=== PATIENT | male | born 1995 | race Caucasian/White ===

== ENCOUNTER 2021-12-13 11:48 | Outpatient (REF) | payer OTHER, SELFPAY ==
[2021-12-13 14:09] LABS: Appearance Urine HAZY; Color Urine YELLOW; Glucose Urine UA NEG (NEG); Leukocyte Esterase Urine NEG (NEG); Nitrite Urine NEG (NEG); Specific Gravity - Urine >= 1.030 (1.005-1.025); UACC Culture Trigger NO; Urine Blood TRACE (NEG); Urine Ketones NEG (NEG); Urine Protein NEG (NEG-TRACE)
[2021-12-13 14:30] LABS: Alanine Aminotransferase 41 U/L (0-40); Albumin Level 4.6 g/dL (3.5-5.0); Alkaline Phosphatase 87 U/L (39-117); Anion Gap 16 (12-20); Aspartate Amino Transferase 22 U/L (5-37); Bilirubin Total 0.6 mg/dL (0.0-1.0); Blood Urea Nitrogen 10 mg/dL (9-16); Calcium 9.9 mg/dL (8.4-10.2); Carbon Dioxide 27 mmol/L (22-29); Chloride 101 mmol/L (96-108); Cholesterol 183 mg/dL; Estimated Glomerular Filt Rate > 60; Glucose Fasting 92 mg/dL (60-99); HDL Cholesterol 36 mg/dL; LDL Cholesterol Calculated 96 mg/dl; Potassium 4.6 mmol/L (3.3-5.1); Sodium 139 mmol/L (135-145); Total Protein 7.3 g/dL (6.5-8.0); Triglycerides 258 mg/dL
[2021-12-13 14:40] LABS: Calcium Oxalate Crystals Urine TRACE /LPF; Mucus Urine 3+ /LPF; RBC Urine 0-2 /HPF (0); Squamous Epithelial Cell Urine TRACE /LPF; WBC Urine 0-2 /HPF (0-4)
[2021-12-13 14:52] LABS: TSH reflex Free T4 1.78 uIU/mL (0.32-4.0)
== END 2021-12-13 11:49 | disposition home or self-care (01) ==
LOC: HO.HMGCLDS 11:48
PROVIDERS: Visit Provider Nurse Practitioner Family
DX: Z00.00 Encounter for general adult medical examination without abnormal findings (principal); R31.29 Other microscopic hematuria
CPT/HCPCS: 36415; 80053; 80061; 81001; 81003; 84443

== ENCOUNTER 2023-03-22 09:56 | Outpatient (REF) | payer OTHER, SELFPAY ==
[2023-03-22 11:27] LABS: MANUAL DIFF FLAG NO
[2023-03-22 11:58] LABS: Appearance Urine Clear; Color Urine Yellow; Glucose Urine UA Negative (Negative); Leukocyte Esterase Urine Negative (Negative); Nitrite Urine Negative (Negative); PH 5.5 (5.0-9.0); Urine Blood Negative (Negative); Urine Ketones Negative (Negative); Urine Protein Negative (Neg-Trace)
[2023-03-22 11:59] LABS: Basophils Absolute Auto 0.1 X10*3/uL (0.0-0.2); Basophils Percent Auto 0.6 % (0-2); Eosinophils Absolute Auto 0.1 X10*3/uL (0.0-0.4); Eosinophils Percent Auto 1.4 % (0-4); Hematocrit 43.7 % (42.0-52.0); Hemoglobin 14.2 g/dl (14.0-18.0); Imm Gran Abs Auto 0.05 X10*3/uL (0.00-0.03); Imm Gran Pct Auto 0.6 % (0.0-0.4); Lymphocytes Absolute Auto 2.2 X10*3/uL (1.2-4.9); Lymphocytes Percent Auto 27.1 % (20-40); Mean Corpuscular HGB Conc 32.5 g/dl (31.0-36.0); Mean Corpuscular Hemoglobin 25.5 pg (27.0-33.0); Mean Corpuscular Volume 78.5 fL (80.0-98.0); Monocytes Absolute Auto 0.5 X10*3/uL (0.1-1.2); Monocytes Percent Auto 5.9 % (2-11); Neutrophils Absolute Auto 5.1 x10*3/uL (2.0-8.3); Neutrophils Percent Auto 64.4 % (45-73); Platelet Count 304 X10*3/uL (160-400); Red Blood Count 5.57 X10*6/uL (4.60-5.80); Red Cell Distribution Width 13.7 % (11.0-16.0)
[2023-03-22 12:44] LABS: Alanine Aminotransferase 51 U/L (0-40); Albumin Level 4.5 g/dL (3.5-5.0); Alkaline Phosphatase 87 U/L (39-117); Anion Gap 13 (12-20); Aspartate Amino Transferase 27 U/L (5-37); Bilirubin Total 0.4 mg/dL (0.0-1.0); Blood Urea Nitrogen 11 mg/dL (9-16); Calcium 9.5 mg/dL (8.4-10.2); Carbon Dioxide 27 mmol/L (22-29); Chloride 104 mmol/L (96-108); Cholesterol 192 mg/dL; Estimated Glomerular Filt Rate > 60; Glucose Fasting 118 mg/dL (60-99); HDL Cholesterol 36 mg/dL; LDL Cholesterol Calculated 107 mg/dl; Potassium 4.8 mmol/L (3.3-5.1); Sodium 139 mmol/L (135-145); Total Protein 7.1 g/dL (6.5-8.0); Triglycerides 246 mg/dL
[2023-03-22 12:58] LABS: TSH reflex Free T4 1.19 uIU/mL (0.32-4.0)
== END 2023-03-22 09:57 | disposition home or self-care (01) ==
LOC: HO.HMGCLDS 09:56
PROVIDERS: PCP Nurse Practitioner Family; Visit Provider Nurse Practitioner Family
DX: E78.5 Hyperlipidemia, unspecified (principal)
CPT/HCPCS: 36415; 80053; 80061; 81003; 84443; 85025

== ENCOUNTER 2023-04-01 09:50 | Outpatient (REF) | payer OTHER, SELFPAY ==
--- NOTE | ~2023-04-01 | US_ITS ---
EXAMINATION: US ABDOMEN COMPLETE CLINICAL INFORMATION: Elevated liver enzymes. COMPARISON: None available. TECHNIQUE: Real-time imaging of the abdominal viscera. Technically difficult study secondary to bowel gas and body habitus. FINDINGS: PANCREAS: The visualized portions of the pancreas are unremarkable but a large portion of the gland is obscured by bowel gas. ABDOMINAL AORTA: Distal aorta appears within normal limits in size. The proximal and mid abdominal aorta are not visualized. INFERIOR VENA CAVA: Obscured by bowel gas. LIVER: The liver is enlarged measuring about 21 cm in greatest length with increased echogenicity consistent with hepatic steatosis. The liver contour is normal. No focal hepatic lesion. There is no intrahepatic biliary duct dilatation seen. GALLBLADDER: Normal. The gallbladder is physiologically distended without evidence of stones, sludge, polyps, wall thickening or pericholecystic fluid. COMMON BILE DUCT: Could not be seen secondary to overlying bowel gas. RIGHT KIDNEY: No hydronephrosis. No renal calculi or focal parenchymal lesions. The kidney measures 12.9 cm in maximum dimension. LEFT KIDNEY: Normal. No hydronephrosis. No renal calculi or focal parenchymal lesions. The kidney measures 12.4 cm in maximum dimension. SPLEEN: The spleen is enlarged measuring 14.6 cm in maximum dimension. FREE FLUID: None. US/US abdomen complete IMPRESSION: 1. Enlarged fatty liver. 2. Splenomegaly.
[2023-04-03 07:57] LABS: HBS Num1 0.33 mIU/mL (0-7.99); HBc Num1 0.07 S/CO (0.00-0.79); HBsAGNum1 0.32 S/CO (0.00-0.99); Hepatitis A Antibody IgM 0.14 Index (0-0.79); Hepatitis B Core Antibody Nonreactive (Nonreactive); Hepatitis B Surface Antigen Negative (Negative); ~HepC Num1 0.08 S/CO (0.00-0.79); ~Hepatitis A Antibody IgM Nonreactive (Nonreactive); ~Hepatitis B Surface Antibody NONREACTIVE (Nonreactive); ~Hepatitis C Antibody Nonreactive (Nonreactive)
== END 2023-04-01 09:51 | disposition home or self-care (01) ==
LOC: HO.HMGCX 09:50
PROVIDERS: PCP Nurse Practitioner Family; Visit Provider Nurse Practitioner Family
DX: R74.8 Abnormal levels of other serum enzymes (principal)
CPT/HCPCS: 36415; 76700; 86704; 86706; 86709; 86803; 87340

== ENCOUNTER 2023-08-13 13:41 | Outpatient (AMB) | payer OTHER, SELFPAY ==
--- NOTE | 2023-08-13 13:53 | MHC.PC.OV ---
Vital Signs 08/13/23 13:58 Height 5 ft 10 in Weight 337 lb BMI 48.3 BP 126/82 Blood Pressure Location Rt brachial Position Sitting Pulse 98 Pulse Source Pulse Oximeter Pulse Oximetry (%) 98 Oxygen Delivery Method Room Air Intake Visit Reasons: PE~ R/S from 06/18 Allergies Nsaids Allergy (Unknown, Uncoded 08/13/23 13:58) on sertraline Medication List - Last Reconciled 08/13/23 by FADI Cadet atorvastatin 10 mg PO DAILY 90 days buspirone 5 mg PO BEDTIME buspirone 10 mg PO TID cholecalciferol (vitamin D3) 50 mcg PO DAILY 90 days fenofibrate micronized 67 mg PO DAILY hydroxyzine HCl 10 mg PO BID ketoconazole 2% 1 appl topical DAILY lisinopril 10 mg PO DAILY sertraline 100 mg PO DAILY sertraline 50 mg PO DAILY trazodone 50 mg PO BEDTIME Tobacco use date assessed: 08/13/23 Dental Screening Dental Screen Date: 08/13/23 Did you have a dental visit in the last 12 months?: No Did you have a dental problem in the last 6 months where you did not have access to dental care?: No Was dental information given to patient?: No HPI PE~ R/S from 06/18 HPI Details Pt is here for a PE. Will order labs. Pt reports tinea to his pelvic region. Will send ketoconazole cream. COUNT INCLUDES THE [facility] Medical History (Updated 08/13/23 @ 14:22 by FADI Cadet) Fatty liver Splenomegaly Family History Father Substance use disorder Mental health disorder Paternal Grandmother Substance use disorder Mother Mental health disorder Social History Housing: House Patient Tobacco Use Status: Never used Tobacco e-Cigarette/Vaping Use: Never Used Second Hand Smoke Exposure: No Cognitive needs: No Hearing needs: No Vision needs: Yes Questionnaire PHQ-9 Over the last 2 weeks, how often have you been bothered by any of the following problems? 1. Little interest or pleasure in doing things: not at all 2. Feeling down, depressed, or hopeless: not at all 3. Trouble falling or staying asleep, or sleeping too much: not at all 4. Feeling tired or having little energy: not at all 5. Poor appetite or overeating: not at all 6. Feeling bad about yourself - or that you are a failure or have let yourself or your family down: not at all 7. Trouble concentrating on things, such as reading the newspaper or watching television: not at all 8. Moving or speaking so slowly that other people could have noticed. Or the opposite - being so fidgety or restless that you have been moving around a lot more than usual: not at all 9. Thoughts that you would be better off or of hurting yourself in some way: not at all Total score: 0 Depression Screening Interpretation: Negative Depression Screening Done: Yes 31414 - PHQ-9 Billing: Yes Source: Developed by Drs. Boubacar Victor, Huong Deleon, Laz Espinal and colleagues, with an educational karen from [employer]. Thrive Questionnaire Date Thrive assessed: 06/14/21 AUDIT C Alcohol Use Questionnaire (AUDIT-C) 1. How often do you have a drink containing alcohol?: Never 3. How often do you have six or more drinks on one occasion?: Never Total Score: 0 Score Reviewed/Action Taken: No SEFERINO-7 AMB Questionnaire SEFERINO-7 Date SEFERINO - 7 assessed: 08/13/23 Feeling nervous, anxious, or on edge: 0 = Not at all Not being able to stop or control worryin = Not at all Worrying too much about different things: 0 = Not at all Trouble relaxin = Not at all Being so restless that it is hard to sit still: 0 = Not at all Becoming easily annoyed or irritable: 0 = Not at all Feeling afraid as if something awful might happen: 0 = Not at all Total SEFERINO-7 score (0-4 normal; 5-9 mild; 10-14 moderate; 15-21 severe): 0 Source: Developed by Drs. Boubacar Victor, Huong Deleon, Laz Espinal and colleagues, with an educational karen from [employer]. SEFERINO-7 Assessment Billing SEFERINO-7 Assessment Tool: SEFERINO-7 Assessment 66867 Review of Systems Const Denies chills and Denies fever(s) Eyes Denies blurry vision ENT Denies vertigo, Denies dizziness and Denies sore throat Card Denies chest pain at rest, Denies chest pain with activity, Denies diaphoresis, Denies dyspnea and Denies dyspnea on exertion Resp Denies cough, Denies dyspnea, Denies dyspnea on exertion and Denies wheezing GI Denies abdominal pain, Denies melena, Denies hematochezia, Denies constipation, Denies diarrhea and Denies loose stools Denies hematuria Musc Denies numbness and Denies tingling Skin/Breast Denies lesions Neuro Denies vertigo, Denies dizziness, Denies numbness and Denies tingling Psych Denies anxiety, Denies depression, Denies homicidal ideation, Denies suicidal ideation and Denies other (substance abuse) Aller/Immun Denies wheezing Physical exam (Primary Care) Vital Signs: Last Vital Signs Pulse 98 08/13/23 13:58 BP 126/82 08/13/23 13:58 Pulse Ox 98 08/13/23 13:58 Oxygen Delivery Method Room Air 08/13/23 13:58 BMI result Body Mass Index 48.3 Tobacco/Smoking Status: Tobacco use Status Tobacco use date assessed 08/13/23 08/13/23 14:03 Patient Tobacco Use Status Never used Tobacco 08/13/23 13:54 e-Cigarette/Vaping Use Never Used 08/13/23 14:03 Depression Screening Interpretation: Negative Thrive Assessment: Date of Thrive Assessment Date Thrive assessed 06/14/21 08/13/23 13:54 Const General: cooperative Nutritional Appearance: obese morbidly obese Orientation/consciousness: patient oriented x3 HENMT Head: Yes normal to inspection, Yes normocephalic and Yes atraumatic Ears: TM's normal bilaterally Eyes General: appearance normal, both eyes and all related structures Alignment and Position: alignment normal and position normal Neck Neck: Yes normal visual inspection and Yes no lymphadenopathy Thyroid: Thyroid normal Resp Effort & Inspection: normal respiratory effort Auscultation: clear to auscultation bilaterally Cardio Rate: regular rate Rhythm: regular rhythm Heart sounds: S1 normal heart sound present, S2 normal heart sound present and no murmurs GI Palpation (GI): Soft to palpation and nontender Auscultation: normal bowel sounds Male General Exam: Yes normal external exam Penis: normal penis Scrotum: scrotum normal, testes descended bilaterally and no inguinal hernias Testes: no testicular mass Skin Other: macular areas of erythema to pelvic region (tinea) Rashes: no rashes Neuro General: patient oriented x3, moves all extremities, no focal motor deficits and deep tendon reflexes 2+ bilaterally Romberg Test: Negative Psych Appearance: grossly normal Mental Status: mental status grossly normal Speech and movement: Normal speech and movement present Affect: normal affect Attitude: cooperative Thought process: Normal thought process present Thought content: Normal thought content present Insight: Good insight present (Psych) Judgement: Good judgement present (Psych) Assessment and Plan Assessment & Plan (1) Physical exam: Code(s): Z00.00 - Encounter for general adult medical examination without abnormal findings Plan: Labs ordered (2) Morbid obesity: Code(s): E66.01 - Morbid (severe) obesity due to excess calories Plan: Labs ordered (3) Tinea: Code(s): B35.9 - Dermatophytosis, unspecified Plan: Ketoconazole cream sent Plan The patient agreed to the use of a medical education coordinator for this encounter. Scribed for MYLES Uribe-BC by Susan Grace medical education coordinator, on 08/13/2023 at 14:15 EST Medications: New ketoconazole 2% 1 appl topical DAILY 60 grams 0RF Coding Level of Care Code Est Pt Prev Care 18-39y(03486) Diagnoses Physical exam Z00.00 Morbid obesity E66.01 Tinea B35.9 Additional Codes SEFERINO-7 Assessment Billing - SEFERINO-7 Assessment Tool: SEFERINO-7 Assessment [id number] ([id number])
[2023-08-13 13:58] VITALS: BP 126/82; PULSE 98; O2SAT 98; BMI 48.3
== END 2023-08-13 14:23 | disposition home or self-care (01) ==
PROVIDERS: Visit Provider Nurse Practitioner Family
DX: Z00.00 Encounter for general adult medical examination without abnormal findings (principal); E66.01 Morbid (severe) obesity due to excess calories; B35.9 Dermatophytosis, unspecified; Z68.42 Body mass index [BMI] 45.0-49.9, adult
CPT/HCPCS: 99395

== ENCOUNTER 2024-07-09 10:01 | Emergency (ER) | payer OTHER, SELFPAY ==
--- NOTE | ~2024-07-09 | CT_ITS ---
EXAMINATION: CT ABDOMEN AND PELVIS WITH CONTRAST CLINICAL INFORMATION: Left lower quadrant pain. Diarrhea. Fever. COMPARISON: None available. TECHNIQUE: Multidetector volumetric images were obtained from the superior aspect of the liver through the pubic symphysis following administration 85 mL of Omnipaque 350 intravenous contrast. Sagittal and coronal reformatted images were obtained on the technologist's workstation. Oral contrast: No This CT examination was performed using dose optimization techniques as appropriate, variously including the following: *Automated exposure control *Adjustment of mA and/or kV according to patient size (this includes techniques or standardized protocols for targeted exams where dose is matched to indication/reason for exam; i.e. extremities or head) *Use of iterative reconstruction technique DLP: 1769 mGy-cm FINDINGS: LUNG BASES: The visualized lung bases are unremarkable. LIVER, GALLBLADDER, AND BILIARY TREE: Mild hepatomegaly. Right lobe of liver measures 21 cm superior-inferior. Diffuse low-attenuation of liver parenchyma due to fatty change. No focal liver lesion or intrahepatic bile duct dilatation. The gallbladder is unremarkable with no evidence of radiopaque gallstones, gallbladder wall thickening, or obvious pericholecystic inflammatory changes. PANCREAS: Unremarkable. SPLEEN: Spleen is enlarged. Spleen measures 17 cm in length. No focal splenic lesion. ADRENAL GLANDS: Unremarkable. KIDNEYS AND URETERS: The kidneys are normal in size, shape, and attenuation. No hydronephrosis, hydroureter, or calculi seen. No perinephric stranding. BLADDER: Unremarkable. GASTROINTESTINAL TRACT: There are innumerable diverticula throughout the colon. There is no diverticulitis. There is no bowel wall thickening /edema. There is no bowel obstruction. There is a moderate volume of stool in the colon. The appendix is normal . The small bowel loops are unremarkable. The stomach is normal. There is no hiatal hernia. ABDOMINAL WALL: No significant hernia is appreciated. LYMPH NODES: Normal. VASCULAR: Unremarkable. PELVIC VISCERA: Unremarkable. OSSEOUS STRUCTURES: Unremarkable. CT/CT abdomen pelvis w IV con IMPRESSION: No significant abnormality. Fleischner guidelines were followed. Electronically signed by: Paul Phoenix MD 07/09/2024 03:35 PM EDT
[2024-07-09 10:19] VITALS: BP 134/90; PULSE 109; RESP 18; TEMP 38.9; O2SAT 96; BMI 44.6
[2024-07-09] MEDS: Acetaminophen 325 MG TABLET 975 MG PO (10:27)
[2024-07-09 10:44] LABS: MANUAL DIFF FLAG NO
[2024-07-09 10:45] LABS: Basophils Percent Auto 0.4 % (0-2); Eosinophils Percent Auto 0.4 % (0-4); Hematocrit 40.6 % (42.0-52.0); Hemoglobin 13.9 g/dl (14.0-18.0); Imm Gran Abs Auto 0.05 X10*3/uL (0.00-0.03); Lymphocytes Absolute Auto 0.9 X10*3/uL (1.2-4.9); Mean Corpuscular HGB Conc 34.2 g/dl (31.0-36.0); Mean Corpuscular Hemoglobin 25.8 pg (27.0-33.0); Mean Corpuscular Volume 75.5 fL (80.0-98.0); Mean Platelet Volume 9.5 fL (9.4-12.4); Monocytes Absolute Auto 0.6 X10*3/uL (0.1-1.2); Monocytes Percent Auto 13.4 % (2-11); Neutrophils Absolute Auto 3.2 x10*3/uL (2.0-8.3); Neutrophils Percent Auto 66.8 % (45-73); Platelet Count 184 X10*3/uL (160-400); Red Blood Count 5.38 X10*6/uL (4.60-5.80); Red Cell Distribution Width 13.1 % (11.0-16.0); White Blood Count 4.8 X10*3/uL (4.8-10.8)
[2024-07-09 10:58] LABS: Alanine Aminotransferase 81 U/L (0-40); Albumin Level 4.6 g/dL (3.5-5.0); Alkaline Phosphatase 96 U/L (39-117); Anion Gap 13 (12-20); Aspartate Amino Transferase 86 U/L (5-37); Bilirubin Total 0.8 mg/dL (0.0-1.0); Blood Urea Nitrogen 9 mg/dL (9-16); Calcium 9.8 mg/dL (8.4-10.2); Carbon Dioxide 27 mmol/L (22-29); Chloride 99 mmol/L (96-108); Creatinine Clr Calc Pharmacy 180.2; Estimated Glomerular Filt Rate > 60; Glucose Random 240 mg/dL (60-115); Sodium 135 mmol/L (135-145)
[2024-07-09 11:28] LABS: Influenza A PCR NEGATIVE (Negative); Influenza B PCR NEGATIVE (Negative); Resp Syncy Virus RNA Qual PCR NEGATIVE (Negative); SARS COV2 PCR INHOUSE NEGATIVE (Negative)
[2024-07-09 11:51] VITALS: BP 148/100; PULSE 103; RESP 18; TEMP 38; O2SAT 98
--- NOTE | 2024-07-09 11:51 | ED.ABDPAIN ---
HPI - Abdominal Pain General Chief Complaint: Abdominal Pain Stated Complaint: abd pain-vomiting Time Seen by Provider: 07/09/24 12:06 Source: patient Mode of arrival: ambulatory Limitations: no limitations History of Present Illness ED Provider: Alma Delia Hugo PA-C HPI narrative: 28 yo male with history of morbid obesity, HTN, anxiety, pre-DM who presents to the ER for evaluation of N/V/D for the last 3 days along with extreme fatigue. no known sick contacts. he states he has had decreased PO intake and vomiting whenever he tries to eat or drink anything. he denies any blood in his vomit or stool. no fevers, or known sick contacts. no URI symptoms. No significant abdominal pain but just discomfort. no recent travel. MD elicited complaint: other (N/V/D) Pertinent past history: none Onset (ago): day(s) (3) Pain Consistency: constant Severity: moderate Quality: dull Migration to: no migration Exacerbating factors: eating Relieving factors: nothing Associated symptoms: nausea, vomiting, diarrhea and chills Related Data Home Medications ?Medication ?Instructions ?Recorded ?Confirmed buspirone 10 mg tablet 10 mg PO TID 06/14/21 08/13/23 buspirone 5 mg tablet 5 mg PO BEDTIME 06/14/21 08/13/23 sertraline 100 mg tablet 100 mg PO DAILY 06/14/21 08/13/23 sertraline 50 mg tablet 50 mg PO DAILY 06/14/21 08/13/23 trazodone 50 mg tablet 50 mg PO BEDTIME 06/14/21 08/13/23 hydroxyzine HCl 10 mg tablet 10 mg PO BID 08/13/23 08/13/23 Previous Rx's ?Medication ?Instructions ?Recorded cholecalciferol (vitamin D3) 50 50 mcg PO DAILY 90 days #90 tabs 03/13/21 mcg (2,000 unit) tablet ketoconazole 2 % topical cream 1 appl topical DAILY #60 grams 08/13/23 lisinopril 10 mg tablet 10 mg PO DAILY #90 tabs 04/03/24 fenofibrate micronized 67 mg 67 mg PO DAILY #90 caps 06/17/24 capsule atorvastatin 10 mg tablet 10 mg PO DAILY 90 days #90 tabs 07/01/24 ondansetron 4 mg disintegrating 4 mg PO Q8H PRN nausea and 07/09/24 tablet vomiting #14 tabs vancomycin 125 mg capsule 125 mg PO QID 10 days #40 caps 07/09/24 (Vancocin) Allergies Allergy/AdvReac Type Severity Reaction Status Date / Time Nsaids Allergy Unknown on Uncoded 07/09/24 10:22 sertraline Review of Systems Review of Systems Yes all other systems are reviewed and are negative [facility] Past Medical History Medical History (Updated 07/09/24 @ 15:04 by MITESH Pugh) Fatty liver Splenomegaly Family History Family History Father Substance use disorder Mental health disorder Paternal Grandmother Substance use disorder Mother Mental health disorder Social History Social History Housing: House Patient Tobacco Use Status: Never used Tobacco e-Cigarette/Vaping Use: Never Used Second Hand Smoke Exposure: No Advance Directives: No Advance Directives Information Provided: No Do you have a plan to hurt others: No Plan Cognitive needs: No Hearing needs: No Vision needs: Yes Physical Exam ED Vital Signs: Vital Signs - 24 hr 07/09/24 10:19 07/09/24 11:51 07/09/24 14:00 Temperature 102.0 F H 100.4 F 99.4 F Pulse Rate 109 H 103 H 82 Respiratory Rate 18 18 14 Blood Pressure 134/90 H 148/100 H 132/89 Pulse Oximetry 96 98 97 Oxygen Delivery Method Room Air Room Air Room Air 07/09/24 15:50 07/09/24 16:24 Temperature 98.5 F 98.5 F Pulse Rate 122 H 122 H Respiratory Rate 16 Blood Pressure 138/72 Pulse Oximetry 95 95 Oxygen Delivery Method Room Air Room Air BMI result Body Mass Index 44.6 Appearance: Alert. Oriented X3. diaphoretic Head: normocephalic, atraumatic. Eyes: Pupils equal, round and reactive to light. ENT: Pharynx normal. No tonsillar swelling or exudate. Neck: Normal inspection. Neck supple. CVS: tachycardic, regular rhythm, HR 110. Pulses normal. Respiratory: No respiratory distress. Breath sounds normal. Abdomen: Obese Soft with LLQ tenderness to deep palpation without rebound or guarding. +BS x4 Skin: Skin warm and dry. Normal skin color. Normal skin turgor. No rashes. Extremities: No lower extremity edema. No joint swelling. Neuro/psych: Oriented X 3. No motor deficit. No sensory deficit. CN II-XII intact. Normal speech and cognition. Medical Decision Making Medical Decision Making [facility] Narrative: 28-year-old morbidly obese male with history of HTN, HLD, prediabetes who presents to the ER for evaluation of nausea, vomiting, diarrhea, extreme fatigue and decreased p.o. intake. On examination he is tachycardic and febrile to 102. He denies any URI symptoms. His abdominal exam is revealing for left lower quadrant tenderness to deep palpation only, no rebound or guarding. He has had several episodes of nonbloody diarrhea, stool studies were sent and patient was found to be C diff positive. He had no leukocytosis on lab workup. No major metabolic derangements. IV was established and he was given IV fluids and Zofran. Fever improved with Tylenol. Nausea significantly improved his Zofran he was feeling much better. CT scan did not show any acute abnormalities. Patient counseled on diagnosis of C diff. He denies any known contacts with anyone with C diff, no recent antibiotic use. Started on p.o. vanco and p.r.n. Zofran. Stable for discharge home. Return precautions were discussed. Differential Diagnosis Differential Diagnoses: The differential diagnosis associated with the presentation includes Gastroenteritis, colitis, appendicitis, UTI, pyelonephritis, dehydration, DRAON, C diff Admission/Observation Consideration of admission/observation: Escalation of care including admission/observation considered Lab Data [facility] Lab Attestation statement: I reviewed the patient's lab results. no leukocytosis, mild elevation of LFTs 07/09/24 10:34 07/09/24 10:34 Labs: Lab Results 07/09/24 07/09/24 Range/Units 10:34 13:39 WBC 4.8 (4.8-10.8) X10*3/uL RBC 5.38 (4.60-5.80) X10*6/uL Hgb 13.9 L (14.0-18.0) g/dl Hct 40.6 L (42.0-52.0) % MCV 75.5 L (80.0-98.0) fL MCH 25.8 L (27.0-33.0) pg MCHC 34.2 (31.0-36.0) g/dl RDW 13.1 (11.0-16.0) % Plt Count 184 D (160-400) X10*3/uL MPV 9.5 (9.4-12.4) fL Immature Gran % (Auto) 1.0 H (0.0-0.4) % Neut % (Auto) 66.8 (45-73) % Lymph % (Auto) 18.0 L (20-40) % [place] % (Auto) 13.4 H (2-11) % Eos % (Auto) 0.4 (0-4) % Baso % (Auto) 0.4 (0-2) % Lymph # (Auto) 0.9 L (1.2-4.9) X10*3/uL [place] # (Auto) 0.6 (0.1-1.2) X10*3/uL Eos # (Auto) 0.0 (0.0-0.4) X10*3/uL Baso # (Auto) 0.0 (0.0-0.2) X10*3/uL Abs Immat Gran (auto) 0.05 H (0.00-0.03) X10*3/uL Absolute Neuts (auto) 3.2 (2.0-8.3) x10*3/uL Absolute Nucleated RBC 0.000 (0.0-0.012) X10*3/uL Nucleated RBC % (auto) 0.0 (0.0-0.2) /100WBC Sodium 135 (135-145) mmol/L Potassium 4.0 (3.3-5.1) mmol/L Chloride 99 (96-108) mmol/L Carbon Dioxide 27 (22-29) mmol/L Anion Gap 13 (12-20) BUN 9 (9-16) mg/dL Creatinine 0.88 (0.5-1.4) mg/dL Estim Creat Clear Calc 180.2 Estimated GFR > 60 Random Glucose 240 H (60-115) mg/dL Calcium 9.8 (8.4-10.2) mg/dL Total Bilirubin 0.8 (0.0-1.0) mg/dL AST 86 H (5-37) U/L ALT 81 H (0-40) U/L Alkaline Phosphatase 96 (39-117) U/L Total Protein 8.0 (6.5-8.0) g/dL Albumin 4.6 (3.5-5.0) g/dL Stl C. cayetanensis PCR Not Detected (Not Detect.) Stool Rotavirus A PCR Not Detected (Not Detect.) Stl Adenov F 40/41 PCR Not Detected (Not Detect.) Stool Astrovirus (PCR) Not Detected (Not Detect.) Stool Campylobacter PCR Not Detected (Not Detect.) Stool Cryptosporidium PCR Not Detected (Not Detect.) Stl Sh Tox Pr E STEC PCR Not Detected (Not Detect.) Stool E coli O157 PCR Not applicable (Not Detect.) Stl Enterotoxigenic E PCR Not Detected (Not Detect.) Stool EPEC (PCR) Not Detected (Not Detect.) Stool EAEC (PCR) Not Detected (Not Detect.) Stl E. histolytica PCR Not Detected (Not Detect.) Stool Giardia Lamblia PCR Not Detected (Not Detect.) Stl P. shigelloides PCR Not Detected (Not Detect.) Stool Salmonella PCR Not Detected (Not Detect.) Stool Sapovirus (PCR) Not Detected (Not Detect.) Stl Shigella/EIEC PCR Not Detected (Not Detect.) St Y.enterocolitica PCR Not Detected (Not Detect.) Stool Vibrio (PCR) Not Detected (Not Detect.) Stl Vibrio cholerae PCR Not Detected (Not Detect.) Stl Norovirus GI/GII PCR Not Detected (Not Detect.) C. difficile Tox B Gene POSITIVE A* (Negative) C. difficile Toxin A&B Negative (Negative) C. difficile Interpret SEE NOTE Influenza Type A (PCR) NEGATIVE (Negative) Influenza Type B (PCR) NEGATIVE (Negative) RSV RNA Qual (PCR) NEGATIVE (Negative) SARS-CoV-2 RNA (RT-PCR) NEGATIVE (Negative) Independent Interpretation I performed an independent interpretation of an: CT Scan Interpretation: no colonic wall thickening or abscess appreciated, no air fluid levels, agree w/ radiology read Radiology Impression Discussion of test interpretation with radiology: I have reviewed the radiologist's reading. Radiologist Impression: CT/CT abdomen pelvis w IV con IMPRESSION: No significant abnormality. External Record Review External record reviewed: Prior outpatient labs Prescription Management I considered prescription management with: Pain Medication and Antibiotic Chronic Conditions Patient?s care impacted by: Diabetes and Hypertension Medications Administered Discontinued Medications Generic Name Dose Route Start Last Admin Trade Name Renetta PRN Reason Stop Dose Admin Acetaminophen 975 mg 07/09/24 10:25 07/09/24 10:27 Acetaminophen 325 Mg Tablet PO 07/09/24 10:26 975 mg ONCE ONE Administration Lactated Ringer's 1,000 mls @ 999 mls/hr 07/09/24 12:00 07/09/24 16:21 Lr IV 07/09/24 13:00 Infused .Q1H1M DAVID Infusion Lactated Ringer's 1,000 mls @ 999 mls/hr 07/09/24 15:15 07/09/24 15:21 Lr IV 07/09/24 16:15 999 mls/hr .Q1H1M DAVID Administration Iohexol 100 ml 07/09/24 12:55 07/09/24 12:56 Iohexol 350 Mg/Ml 100 Ml Infus..Btl IV 07/09/24 12:56 100 ml ONCE ONE Administration Ondansetron HCl 4 mg 07/09/24 11:54 07/09/24 11:55 Ondansetron Odt 4 Mg Tab.Rapdis TRANSLINGU 07/09/24 11:55 4 mg ONCE ONE Administration Vancomycin HCl 125 mg 07/09/24 15:03 07/09/24 15:21 Vancomycin Hcl 125 Mg Capsule PO 07/09/24 15:04 125 mg ONCE ONE Administration Critical Care Time Critical Care Time Critical Care Time: Yes Total Critical Care Time: 33 Attestation: I have personally provided critical care time exclusive of time spent on separately billable procedures. Time includes review of lab data, radiology results, reassessment after IVF boluses and mediation administration and monitoring for potential decompensation. Intervention performed as documented. Discharge Plan Discharge Clinical Impression: C. difficile colitis Patient Disposition: Home, Self-Care Instructions: C. Diff (Clostridioides Difficile) Infection (ED) Additional Instructions: Your lab workup today was reassuring. Your CT scan was normal. You tested positive for C diff. This is a bacterial infection in your colon that is treated with oral antibiotics. Take the prescribed antibiotics as directed, complete the entire course and do not miss any doses Rest and drink plenty of fluids. Take the prescribed nausea medication as needed for nausea and vomiting. Follow-up with your doctor. If you develop new or worsening symptoms call 911 or come back to the ER for further evaluation. Prescriptions: New vancomycin [Vancocin] 125 mg capsule 125 mg PO QID 10 Days Qty: 40 0RF ondansetron 4 mg tablet,disintegrating 4 mg PO Q8H PRN (Reason: nausea and vomiting) Qty: 14 0RF No Action cholecalciferol (vitamin D3) 50 mcg (2,000 unit) tablet 50 mcg PO DAILY 90 Days Qty: 90 1RF lisinopril 10 mg tablet 10 mg PO DAILY Qty: 90 1RF fenofibrate micronized 67 mg capsule 67 mg PO DAILY Qty: 90 1RF atorvastatin 10 mg tablet 10 mg PO DAILY 90 Days Qty: 90 1RF sertraline 100 mg tablet 100 mg PO DAILY sertraline 50 mg tablet 50 mg PO DAILY buspirone 10 mg tablet 10 mg PO TID trazodone 50 mg tablet 50 mg PO BEDTIME buspirone 5 mg tablet 5 mg PO BEDTIME hydroxyzine HCl 10 mg tablet 10 mg PO BID ketoconazole 2 % cream 1 appl topical DAILY Qty: 60 0RF Referrals: Jamel Ch FNP-BC [Primary Care Provider] - Stand Alone Forms: Work/School Release Interventions: ED Discharge Assessment Last Done: 07/09/24 16:24 Discharge Date/Time: 07/09/24 16:25 Print Language: Tristanian
[2024-07-09] MEDS: Ondansetron ODT 4 MG TAB.RAPDIS TRANSLINGU (11:55)
[2024-07-09] MEDS: Lactated Ringers 1,000 ML 999 ML IV ×2 (12:18→15:21)
[2024-07-09] MEDS: iohexoL 350 MG/ML 100 ML INFUS..BTL IV (12:56)
[2024-07-09 14:00] VITALS: BP 132/89; PULSE 82; RESP 14; TEMP 37.4; O2SAT 97
[2024-07-09 14:49] LABS: CDiff Gene PCR POSITIVE (Negative)
[2024-07-09 15:16] LABS: Adenovirus F 40/41 Not Detected (Not Detect.); Astrovirus Not Detected (Not Detect.); Campylobacter Not Detected (Not Detect.); Cryptosporidium Not Detected (Not Detect.); Cyclospora cayetanensis Not Detected (Not Detect.); E. coli EAEC Not Detected (Not Detect.); E. coli EPEC Not Detected (Not Detect.); E. coli ETEC Not Detected (Not Detect.); E. coli STEC Not Detected (Not Detect.); Entamoeba histolytica Not Detected (Not Detect.); Giardia lamblia Not Detected (Not Detect.); Norovirus GI/GII Not Detected (Not Detect.); Plesiomonas shigelloides Not Detected (Not Detect.); Rotavirus A Not Detected (Not Detect.); Salmonella Not Detected (Not Detect.); Sapovirus Not Detected (Not Detect.); Shigella sp./EIEC Not Detected (Not Detect.); Vibrio Not Detected (Not Detect.); Vibrio Cholerae Not Detected (Not Detect.); Yersinia enterocolitica Not Detected (Not Detect.)
[2024-07-09] MEDS: vancomycin HCL 125 MG CAPSULE PO (15:21)
[2024-07-09 15:44] LABS: CDIFF Internal ctrl Dots and bkg OK (V); CDiff Toxin Negative (Negative)
[2024-07-09 15:50] VITALS: PULSE 122; TEMP 36.9; O2SAT 95
[2024-07-09 16:24] VITALS: BP 138/72; PULSE 122; RESP 16; TEMP 36.9; O2SAT 95
== END 2024-07-09 16:25 | disposition home or self-care (01) ==
PROVIDERS: Physician Assistant; Emergency Provider Emergency Medicine; PCP Nurse Practitioner Family
DX: A04.72 Enterocolitis due to Clostridium difficile, not specified as recurrent (principal); R00.0 Tachycardia, unspecified; R10.32 Left lower quadrant pain; Z03.818 Encounter for observation for suspected exposure to other biological agents ruled out; E11.9 Type 2 diabetes mellitus without complications; I10 Essential (primary) hypertension; E78.5 Hyperlipidemia, unspecified; E66.9 Obesity, unspecified; Z68.41 Body mass index [BMI] 40.0-44.9, adult; Z79.899 Other long term (current) drug therapy; Z79.02 Long term (current) use of antithrombotics/antiplatelets
CPT/HCPCS: 0241U; 74177; 80053; 85025; 87324; 87493; 87507; 96360; 96361; 99284; J7120; Q9967

== ENCOUNTER 2024-09-01 14:52 | Outpatient (AMB) | payer OTHER, SELFPAY ==
[2024-09-01 15:26] VITALS: BP 128/80; PULSE 82; O2SAT 98; BMI 44.6
--- NOTE | 2024-09-01 15:26 | MHC.PC.OV ---
Vital Signs 09/01/24 15:26 Height 5 ft 10 in Weight 311 lb BMI 44.6 BP 128/80 Blood Pressure Location Rt brachial Position Sitting Pulse 82 Pulse Source Pulse Oximeter Pulse Oximetry (%) 98 Intake Visit Reasons: PE Intake Note: pt is here for PE Rn Float Required: No Accompanied by: Self / Same As Patient Allergies Nsaids Allergy (Unknown, Uncoded 09/01/24 17:43) on sertraline Medication List - Last Reconciled 09/01/24 by FADI Cadet atorvastatin 10 mg PO DAILY 90 days buspirone 5 mg PO BEDTIME buspirone 10 mg PO TID cholecalciferol (vitamin D3) 50 mcg PO DAILY 90 days fenofibrate micronized 67 mg PO DAILY hydroxyzine HCl 10 mg PO BID ketoconazole 2% 1 appl topical DAILY lisinopril 10 mg PO DAILY ondansetron 4 mg PO Q8H PRN sertraline 100 mg PO DAILY sertraline 50 mg PO DAILY trazodone 50 mg PO BEDTIME vancomycin (Vancocin) 125 mg PO QID 10 days Tobacco use date assessed: 09/01/24 Dental Screening Dental Screen Date: 09/01/24 Did you have a dental visit in the last 12 months?: Yes Did you have a dental problem in the last 6 months where you did not have access to dental care?: No Was dental information given to patient?: Patient has dentist HPI HPI Comments History of Present Illness Details Pt is here for a PE. He offers no questions or concerns. He is on sertraline 150mg daily, and tolerating this well. [facility] Medical History Fatty liver Splenomegaly Surgical History No pertinent past surgical history Family History Father Substance use disorder Mental health disorder Paternal Grandmother Substance use disorder Mother Mental health disorder Social History Housing: House Patient Tobacco Use Status: Never used Tobacco e-Cigarette/Vaping Use: Never Used Second Hand Smoke Exposure: No Cognitive needs: No Hearing needs: No Vision needs: Yes Questionnaire PHQ-9 Over the last 2 weeks, how often have you been bothered by any of the following problems? 1. Little interest or pleasure in doing things: not at all 2. Feeling down, depressed, or hopeless: not at all 3. Trouble falling or staying asleep, or sleeping too much: not at all 4. Feeling tired or having little energy: not at all 5. Poor appetite or overeating: not at all 6. Feeling bad about yourself - or that you are a failure or have let yourself or your family down: not at all 7. Trouble concentrating on things, such as reading the newspaper or watching television: not at all 8. Moving or speaking so slowly that other people could have noticed. Or the opposite - being so fidgety or restless that you have been moving around a lot more than usual: not at all 9. Thoughts that you would be better off or of hurting yourself in some way: not at all Total score: 0 Depression Screening Interpretation: Negative Depression Screening Done: Yes 98476 - PHQ-9 Billing: Yes Source: Developed by Drs. Boubacar Victor, Huong Deleon, Laz Espinal and colleagues, with an educational karen from [employer]. Thrive Questionnaire Date Thrive assessed: 09/01/24 I am a: Patient What is your living situation today?: I have a steady place to live Within the past 12 months, did the food you bought not last and you didn't have the money to get more?: I choose not to answer this question Within the past 12 months, did you worry whether your food would run out before you got money to buy more?: Sometimes True Do you have trouble paying for medicines?: No Do you have trouble getting transportation to medical appointments?: No Do you have trouble paying your heating and electricity bill?: No Do you have trouble taking care of your child, family member or friend?: No Do you have trouble with day-to-day activities such as bathing, preparing meals, shopping, managing finances, etc.?: No Are you currently unemployed and looking for a job?: I choose not to answer this question Are you interested in more education?: I choose not to answer this question Please select the resources that you would like help with: None Currently or been in a relationship where the following occur: No concerns reported THRIVE Score: 1 AUDIT C Alcohol Use Questionnaire (AUDIT-C) 1. How often do you have a drink containing alcohol?: Never 3. How often do you have six or more drinks on one occasion?: Never Total Score: 0 Score Reviewed/Action Taken: Yes SEFERINO-7 AMB Questionnaire SEFERINO-7 Date SEFERINO - 7 assessed: 09/01/24 Feeling nervous, anxious, or on edge: 0 = Not at all Not being able to stop or control worryin = Not at all Worrying too much about different things: 0 = Not at all Trouble relaxin = Not at all Being so restless that it is hard to sit still: 0 = Not at all Becoming easily annoyed or irritable: 0 = Not at all Feeling afraid as if something awful might happen: 0 = Not at all Total SEFERINO-7 score (0-4 normal; 5-9 mild; 10-14 moderate; 15-21 severe): 0 Source: Developed by Drs. Boubacar Victor, Huong Deleon, Laz Espinal and colleagues, with an educational karen from [employer]. SEFERINO-7 Assessment Billing SEFERINO-7 Assessment Tool: SEFERINO-7 Assessment 42509 Review of Systems Const Denies chills and Denies fever(s) Eyes Denies blurry vision ENT Denies vertigo, Denies dizziness and Denies sore throat Card Denies chest pain at rest, Denies chest pain with activity, Denies diaphoresis, Denies dyspnea and Denies dyspnea on exertion Resp Denies cough, Denies dyspnea, Denies dyspnea on exertion and Denies wheezing GI Denies abdominal pain, Denies melena, Denies hematochezia, Denies constipation, Denies diarrhea and Denies loose stools Denies hematuria Musc Denies numbness and Denies tingling Skin/Breast Denies lesions Neuro Denies vertigo, Denies dizziness, Denies numbness and Denies tingling Psych Denies anxiety, Denies depression, Denies homicidal ideation, Denies suicidal ideation and Denies other (substance abuse) Aller/Immun Denies wheezing Physical exam (Primary Care) Vital Signs: Last Vital Signs Pulse 82 09/01/24 15:26 BP 128/80 09/01/24 15:26 Pulse Ox 98 09/01/24 15:26 BMI result Body Mass Index 44.6 Tobacco/Smoking Status: Tobacco use Status Tobacco use date assessed 09/01/24 09/01/24 15:27 Patient Tobacco Use Status Never used Tobacco 09/01/24 15:27 e-Cigarette/Vaping Use Never Used 09/01/24 15:27 PHQ-9: PHQ-9 Score PHQ-9: Total score 0 09/01/24 16:22 Depression Screening Interpretation: Negative Thrive Assessment: Date of Thrive Assessment Date Thrive assessed 09/01/24 09/01/24 15:27 Currently or been in a relationship where the following occur: No concerns reported Const General: cooperative Nutritional Appearance: well nourished and obese Orientation/consciousness: patient oriented x3 HENMT Head: Yes normal to inspection, Yes normocephalic and Yes atraumatic Ears: TM normal on the right and TM normal on the left Eyes General: appearance normal, both eyes and all related structures Alignment and Position: alignment normal and position normal Neck Neck: Yes normal visual inspection, Yes no lymphadenopathy and Yes supple Resp Effort & Inspection: normal respiratory effort Auscultation: clear to auscultation bilaterally Cardio Rate: regular rate Rhythm: regular rhythm Heart sounds: S1 normal heart sound present, S2 normal heart sound present and no murmurs GI Palpation (GI): Soft to palpation and nontender Auscultation: normal bowel sounds Male General Exam: Yes normal external exam Penis: normal penis Scrotum: scrotum normal, testes descended bilaterally and no inguinal hernias Testes: no testicular mass Skin Rashes: no rashes Neuro General: patient oriented x3, moves all extremities, no focal motor deficits and deep tendon reflexes 2+ bilaterally Romberg Test: Negative Extrem Right lower extremity: no edema Left lower extremity: no edema Psych Appearance: grossly normal Mental Status: mental status grossly normal Speech and movement: Normal speech and movement present Affect: normal affect Attitude: cooperative Thought process: Normal thought process present Insight: Good insight present (Psych) Judgement: Good judgement present (Psych) Coding Level of Care Code Est Pt Prev Care 18-39y(20352) Diagnoses Physical exam Z00.00 Additional Codes SEFERINO-7 Assessment Billing - SEFERINO-7 Assessment Tool: SEFERINO-7 Assessment 93079 ([id number]) PHQ-9 - 74020 - PHQ-9 Billing: Yes ([id number]) Assessment & Plan Assessment & Plan (1) Physical exam: Code(s): Z00.00 - Encounter for general adult medical examination without abnormal findings Category: Medical Plan: labs ordered Orders: Orders TSH reflex Free T4 Today Z00.00 - Encounter for general adult medical examination without abnormal findings UA CC w/rflx Micro + Cult Today Z00.00 - Encounter for general adult medical examination without abnormal findings Lipid Panel Today Z00.00 - Encounter for general adult medical examination without abnormal findings Complete Blood Count Auto Diff Today Z00.00 - Encounter for general adult medical examination without abnormal findings Comprehensive [place]. Panel Fast Today Z00.00 - Encounter for general adult medical examination without abnormal findings
== END 2024-09-01 17:05 | disposition home or self-care (01) ==
PROVIDERS: PCP Nurse Practitioner Family; Visit Provider Nurse Practitioner Family
DX: Z00.00 Encounter for general adult medical examination without abnormal findings (principal)

== ENCOUNTER → 2024-09-01 14:52 | Outpatient (BNVA) | payer OTHER, SELFPAY | PROVIDERS: PCP Nurse Practitioner Family; Visit Provider Nurse Practitioner Family | DX: Z00.00 Encounter for general adult medical examination without abnormal findings (principal) | CPT/HCPCS: 96127; 99395 ==

== ENCOUNTER 2024-11-18 12:16 | Emergency (ER) | payer OTHER, SELFPAY ==
[2024-11-18 12:57] VITALS: BP 123/92; PULSE 105; RESP 19; TEMP 37; O2SAT 96; BMI 43.3
--- NOTE | 2024-11-18 13:01 | ED_ITS ---
HPI - Nausea/Vomiting/Diarrhea General Chief complaint: Nausea/Vomiting/Diarrhea Stated complaint: ? CDIF Related Data Home Medications ?Medication ?Instructions ?Recorded ?Confirmed buspirone 10 mg tablet 10 mg PO TID 06/14/21 09/01/24 buspirone 5 mg tablet 5 mg PO BEDTIME 06/14/21 09/01/24 sertraline 100 mg tablet 100 mg PO DAILY 06/14/21 09/01/24 sertraline 50 mg tablet 50 mg PO DAILY 06/14/21 09/01/24 trazodone 50 mg tablet 50 mg PO BEDTIME 06/14/21 09/01/24 hydroxyzine HCl 10 mg tablet 10 mg PO BID 08/13/23 09/01/24 Previous Rx's ?Medication ?Instructions ?Recorded cholecalciferol (vitamin D3) 50 50 mcg PO DAILY 90 days #90 tabs 03/13/21 mcg (2,000 unit) tablet ketoconazole 2 % topical cream 1 appl topical DAILY #60 grams 08/13/23 fenofibrate micronized 67 mg 67 mg PO DAILY #90 caps 06/17/24 capsule atorvastatin 10 mg tablet 10 mg PO DAILY 90 days #90 tabs 07/01/24 ondansetron 4 mg disintegrating 4 mg PO Q8H PRN nausea and 07/09/24 tablet vomiting #14 tabs vancomycin 125 mg capsule 125 mg PO QID 10 days #40 caps 07/09/24 (Vancocin) lisinopril 10 mg tablet 10 mg PO DAILY #90 tabs 10/18/24 Allergies Allergy/AdvReac Type Severity Reaction Status Date / Time Nsaids Allergy Unknown on Uncoded 11/18/24 12:59 sertraline [facility] Past Medical History Medical History Fatty liver Splenomegaly Surgical History No pertinent past surgical history Family History Family History Father Substance use disorder Mental health disorder Paternal Grandmother Substance use disorder Mother Mental health disorder Social History Social History Housing: House Patient Tobacco Use Status: Never used Tobacco e-Cigarette/Vaping Use: Never Used Second Hand Smoke Exposure: No Advance Directives: No Advance Directives Information Provided: No Do you have a plan to hurt others: No Plan Cognitive needs: No Hearing needs: No Vision needs: Yes Physical Exam 2 Vital Signs: Vital Signs: Last Vital Signs Temp 98.6 F 11/18/24 12:57 Pulse 105 H 11/18/24 12:57 Resp 19 11/18/24 12:57 BP 123/92 H 11/18/24 12:57 Pulse Ox 96 11/18/24 12:57 O2 Del Method Room Air 11/18/24 12:57 BMI result Body Mass Index 43.3 Course Course Course Narrative: This is an RME: Additional HPI, ROS, PE not included below will be deferred to primary provider. RME assessment and note performed by: Aparna Parker PA-C This is a 29 year old male who presents to the ER with complaints of nausea, vomiting diarrhea sine last night. Patient states that he awoke with abdominal pain. No blood in stool or vomit. History of C diff last June. No recent antibiotic use. No medications prior to arrival. Plan: Labs, further ER evaluation needed. Reevaluation(s) Reevaluation #1: Patient left without completing treatment. Medical Decision Making Lab Data 11/18/24 15:15 11/18/24 15:15 Labs: Lab Results 11/18/24 Range/Units 15:15 WBC 7.6 (4.8-10.8) X10*3/uL RBC 6.15 H (4.60-5.80) X10*6/uL Hgb 15.8 (14.0-18.0) g/dl Hct 45.5 (42.0-52.0) % MCV 74.0 L (80.0-98.0) fL MCH 25.7 L (27.0-33.0) pg MCHC 34.7 (31.0-36.0) g/dl RDW 13.8 (11.0-16.0) % Plt Count 271 D (160-400) X10*3/uL MPV 9.4 (9.4-12.4) fL Immature Gran % (Auto) 0.7 H (0.0-0.4) % Neut % (Auto) 84.3 H (45-73) % Lymph % (Auto) 8.8 L (20-40) % [place] % (Auto) 5.5 (2-11) % Eos % (Auto) 0.4 (0-4) % Baso % (Auto) 0.3 (0-2) % Lymph # (Auto) 0.7 L (1.2-4.9) X10*3/uL [place] # (Auto) 0.4 (0.1-1.2) X10*3/uL Eos # (Auto) 0.0 (0.0-0.4) X10*3/uL Baso # (Auto) 0.0 (0.0-0.2) X10*3/uL Abs Immat Gran (auto) 0.05 H (0.00-0.03) X10*3/uL Absolute Neuts (auto) 6.5 (2.0-8.3) x10*3/uL Absolute Nucleated RBC 0.000 (0.0-0.012) X10*3/uL Nucleated RBC % (auto) 0.0 (0.0-0.2) /100WBC Sodium 135 (135-145) mmol/L Potassium 4.1 (3.3-5.1) mmol/L Chloride 97 (96-108) mmol/L Carbon Dioxide 26 (22-29) mmol/L Anion Gap 16 (12-20) BUN 11 (9-16) mg/dL Creatinine 0.78 (0.5-1.4) mg/dL Estim Creat Clear Calc 198.2 Estimated GFR > 60 Random Glucose 273 H (60-115) mg/dL Calcium 10.0 (8.4-10.2) mg/dL Magnesium 1.4 L* (1.6-2.6) mg/dL Total Bilirubin 1.1 H (0.0-1.0) mg/dL Direct Bilirubin 0.3 (0.0-0.5) mg/dL AST 30 (5-37) U/L ALT 43 H (0-40) U/L Alkaline Phosphatase 82 (39-117) U/L Troponin I High Sens < 2.7 (<3.5-35.0) ng/L Total Protein 8.3 H (6.5-8.0) g/dL Albumin 4.7 (3.5-5.0) g/dL Lipase 11 (8-78) U/L Influenza Type A (PCR) NEGATIVE (Negative) Influenza Type B (PCR) NEGATIVE (Negative) RSV RNA Qual (PCR) NEGATIVE (Negative) SARS-CoV-2 RNA (RT-PCR) NEGATIVE (Negative) Discharge Plan Discharge Clinical Impression: Diarrhea Patient Disposition: Left W/O Completing Treatment Prescriptions: No Action cholecalciferol (vitamin D3) 50 mcg (2,000 unit) tablet 50 mcg PO DAILY 90 Days Qty: 90 1RF fenofibrate micronized 67 mg capsule 67 mg PO DAILY Qty: 90 1RF atorvastatin 10 mg tablet 10 mg PO DAILY 90 Days Qty: 90 1RF lisinopril 10 mg tablet 10 mg PO DAILY Qty: 90 1RF vancomycin [Vancocin] 125 mg capsule 125 mg PO QID 10 Days Qty: 40 0RF ondansetron 4 mg tablet,disintegrating 4 mg PO Q8H PRN (Reason: nausea and vomiting) Qty: 14 0RF sertraline 100 mg tablet 100 mg PO DAILY sertraline 50 mg tablet 50 mg PO DAILY buspirone 10 mg tablet 10 mg PO TID trazodone 50 mg tablet 50 mg PO BEDTIME buspirone 5 mg tablet 5 mg PO BEDTIME hydroxyzine HCl 10 mg tablet 10 mg PO BID ketoconazole 2 % cream 1 appl topical DAILY Qty: 60 0RF Discharge Date/Time: 11/18/24 20:23
--- NOTE | 2024-11-18 13:04 | ECG_ITS ---
Test Reason : TACHYCARDIA Blood Pressure : */* mmHG Vent. Rate : 110 BPM Atrial Rate : 110 BPM P-R Int : 168 ms QRS Dur : 94 ms QT Int : 330 ms P-R-T Axes : 40 38 34 degrees QTcB Int : 446 ms Sinus tachycardia Cannot rule out Anterior infarct , age undetermined Abnormal ECG No previous ECGs available Referred By: Aparna Parker Electronically Signed By: BRIAN ADAM
[2024-11-18 15:21] LABS: MANUAL DIFF FLAG NO
[2024-11-18 15:42] LABS: Troponin-I High Sensitivity < 2.7 ng/L (<3.5-35.0)
[2024-11-18 15:46] LABS: Alanine Aminotransferase 43 U/L (0-40); Albumin Level 4.7 g/dL (3.5-5.0); Anion Gap 16 (12-20); Aspartate Amino Transferase 30 U/L (5-37); Bilirubin Direct 0.3 mg/dL (0.0-0.5); Blood Urea Nitrogen 11 mg/dL (9-16); Carbon Dioxide 26 mmol/L (22-29); Chloride 97 mmol/L (96-108); Creatinine Clr Calc Pharmacy 198.2; Estimated Glomerular Filt Rate > 60; Glucose Random 273 mg/dL (60-115); Lipase 11 U/L (8-78); Magnesium 1.4 mg/dL (1.6-2.6); Potassium 4.1 mmol/L (3.3-5.1); Sodium 135 mmol/L (135-145); Total Protein 8.3 g/dL (6.5-8.0)
[2024-11-18 15:47] LABS: Basophils Percent Auto 0.3 % (0-2); Eosinophils Percent Auto 0.4 % (0-4); Hematocrit 45.5 % (42.0-52.0); Hemoglobin 15.8 g/dl (14.0-18.0); Imm Gran Abs Auto 0.05 X10*3/uL (0.00-0.03); Imm Gran Pct Auto 0.7 % (0.0-0.4); Lymphocytes Absolute Auto 0.7 X10*3/uL (1.2-4.9); Lymphocytes Percent Auto 8.8 % (20-40); Mean Corpuscular HGB Conc 34.7 g/dl (31.0-36.0); Mean Corpuscular Hemoglobin 25.7 pg (27.0-33.0); Mean Platelet Volume 9.4 fL (9.4-12.4); Monocytes Absolute Auto 0.4 X10*3/uL (0.1-1.2); Monocytes Percent Auto 5.5 % (2-11); Neutrophils Absolute Auto 6.5 x10*3/uL (2.0-8.3); Neutrophils Percent Auto 84.3 % (45-73); Platelet Count 271 X10*3/uL (160-400); Red Blood Count 6.15 X10*6/uL (4.60-5.80); Red Cell Distribution Width 13.8 % (11.0-16.0); White Blood Count 7.6 X10*3/uL (4.8-10.8)
[2024-11-18 16:06] LABS: Alkaline Phosphatase 82 U/L (39-117); Bilirubin Total 1.1 mg/dL (0.0-1.0)
[2024-11-18 16:09] LABS: Influenza A PCR NEGATIVE (Negative); Influenza B PCR NEGATIVE (Negative); Resp Syncy Virus RNA Qual PCR NEGATIVE (Negative); SARS COV2 PCR INHOUSE NEGATIVE (Negative)
--- OUTSIDE RECORDS SUMMARY | 2024-11-18 20:12 | XMS_ITS | Clinical Summary ---
Author Organization [facility] Address [address] [place], [place] [id number] Phone Care Team Providers Care Ship Propeller Finisher Name Role Phone Unavailable Primary Care Provider Unavailabl e Immunizations Name Administration Dates Next Due DTaP 5 06/03/2003, 9,05/13/1998, 998,1997 Hep B, ped/adol 06/13/1998,1997,1997 Hib (PRP-T) 04/17/1999, 8,03/25/1998, 998 IPV 06/03/2003, 9,01/25/1998, 998 Influenza, injectable, trivalent 12/01/2008 MMR 06/10/2001,01/31/1999 Meningococcal Conj (Menactra) MCV4P 12/20/2009 Tdap 12/20/2009 Varicella 12/20/2009,06/16/1999 Family History Relation Name Status Comments Father Father: Hyperte nsion, Migraines, Depression, Obesity, Elevated cholesterol Mother Alive Mother: Migrain es, hypertension/high choleterol Sister 1 Alive Sister: Alive a nd well, Alive and well Sister 2 Alive Sister: Alive a nd well, Alive and well Social History Tobacco Use Types Packs/Day Years Used Date Smoking Tobacco: Never Assessed Sex and Gender Information Value Date Recorded Sex Assigned at Not on file Legal Sex Male 4:38 PM EDT Gender Identity Not on file Sexual Orientation Not on file Last Filed Vital Signs Vital Sign Reading Time Taken Comments Blood Pressure 118/70 02/01/2011 12:00 AM EDT Pulse - - Temperature 35.9 ??C (96.6 ??F) 08/17/2011 12:00 AM E DT Respiratory Rate - - Oxygen Saturation - - Inhaled Oxygen Concentration - - Weight 124 kg (273 lb) 08/17/2011 12:00 AM EDT Height 175.3 cm (5' 9 ) 08/17/2011 12:00 AM EDT Body Mass Index 40.32 08/17/2011 12:00 AM EDT Plan of Treatment Health Maintenance Due Date Last Done Comments DTaP,Tdap,and Td Vaccines (7 - Td or Tdap) 12/21/2019 12/20/2009, 06/03/2003, 04/17/1999, Additional history exists Influenza Vaccines (#1) 2024 12/01/2008 COVID-19 Vaccine ( season) 2024 Hepatitis B Vaccines Completed 06/13/1998, 1997, 1997 HIB Vaccines Completed 04/17/1999, 06/22, 03/25/1998, Additional history exists MMR Vaccines Completed 06/10/2001, 01/31/1999 IPV Vaccines Completed 06/03/2003, 03/22, 01/25/1998, Additional history exists Meningococcal Vaccine Aged Out 12/20/2009 No gretel elodia eligible based on patient's age to complete this topic Varicella Vaccines Completed 12/20/2009, 06/16/1999 HPV Vaccines Aged Out No longer eligi ble based on patient's age to complete this topic Hepatitis A Vaccines Aged Out No long er eligible based on patient's age to complete this topic Men B Vaccine Aged Out No longer elig ible based on patient's age to complete this topic Pneumococcal Vaccine Aged Out No long er eligible based on patient's age to complete this topic
--- OUTSIDE RECORDS SUMMARY | 2024-11-18 20:12 | XMS_ITS | Encounter Summary ---
Author Organization [facility] Address [address] [place] [phone] Phone Care Team Providers Care Staff Sonographer Name Role Phone Robb Barrow MD Primary Care Provider [phone] Encounter Details Date Type Department Care Team (Late st Contact Info) Description 05/31/2010 Documentation [facility] [address] [place] [address] Family Medicine, Physician [address] [place], [place] [phone] Social History Tobacco Use Types Packs/Day Years Used Date Smoking Tobacco: Never Assessed Sex and Gender Information Value Date Recorded Sex Assigned at Not on file Legal Sex Male 4:38 PM EDT Gender Identity Not on file Sexual Orientation Not on file documented as of this encounter Plan of Treatment Not on file documented as of this encounter Visit Diagnoses Not on filedocumented in this encounter Care Teams Staff Sonographer Relationship Specialty Start Date End Date Robb Barrow MD [address] [place] [address] [place] [address] PCP - General 05/31/17 01/30/23 documented as of this encounter
--- OUTSIDE RECORDS SUMMARY | 2024-11-18 20:12 | XMS_ITS | Encounter Summary ---
Author Organization [facility] Address [address] [place] [address] Phone Care Team Providers Care Certified Surgical Assistant Name Role Phone Robb Barrow MD Primary Care Provider Encounter Details Date Type Department Care Team (Late st Contact Info) Description 08/21/2011 Documentation [facility] [address] [place] [address] Family Medicine, Physician [address] [place], [place] [phone] Social History Tobacco Use Types Packs/Day Years [...] on filedocumented in this encounter Care Teams Certified Surgical Assistant Relationship Specialty Start Date End Date Robb Barrow MD [address] [place] [address] [place] [address] PCP - General 05/31/17 01/30/23 documented as of this encounter
== END 2024-11-18 20:23 | disposition left against medical advice (07) ==
PROVIDERS: Physician Assistant Medical; Emergency Provider Emergency Medicine; PCP Nurse Practitioner Family
DX: R11.2 Nausea with vomiting, unspecified (principal); R19.7 Diarrhea, unspecified; R00.0 Tachycardia, unspecified; R94.31 Abnormal electrocardiogram [ECG] [EKG]; Z79.899 Other long term (current) drug therapy; Z03.818 Encounter for observation for suspected exposure to other biological agents ruled out
CPT/HCPCS: 0241U; 36415; 80048; 80076; 83690; 83735; 84484; 85025; 93005; 99283

== ENCOUNTER 2025-02-26 09:18 | Outpatient (REF) | payer OTHER, SELFPAY ==
--- OUTSIDE RECORDS SUMMARY | 2025-02-26 09:33 | XMS_ITS | Encounter Summary ---
Author Organization [facility] Address [address] [place] [address] Phone Care Team Providers Care Rework Operator Name Role Phone Robb Barrow MD Primary Care Provider Mackenzie bishop Encounter Details Date Type Department Care Team (Late st Contact Info) Description 08/21/2011 Documentation [facility] [address] [place] [address] Family Medicine, Physician [address] [place], [place] [phone] Social History Tobacco Use Types Packs/Day Years [...] on filedocumented in this encounter Care Teams Rework Operator Relationship Specialty Start Date End Date Robb Barrow MD PCP - General 05/31/17 01/30/23 documented as of this encounter
--- OUTSIDE RECORDS SUMMARY | 2025-02-26 09:33 | XMS_ITS | Encounter Summary ---
Author Organization [facility] Address [address] [place] [address] Phone Care Team Providers Care Paper Wrapping Machine Operator Name Role Phone Robb Barrow MD Primary Care Provider Mackenzie bishop Encounter Details Date Type Department Care Team (Late st Contact Info) Description 05/31/2010 Documentation [facility] [address] [place] [address] Family Medicine, Physician [address] [place], [place] [phone] Social History Tobacco Use Types Packs/Day Years [...] on filedocumented in this encounter Care Teams Paper Wrapping Machine Operator Relationship Specialty Start Date End Date Robb Barrow MD PCP - General 05/31/17 01/30/23 documented as of this encounter
--- OUTSIDE RECORDS SUMMARY | 2025-02-26 09:33 | XMS_ITS | Encounter Summary ---
Author Organization [facility] Address [address] [place] [address] Phone Care Team Providers Care Treadle Cut Off Saw Operator Name Role Phone Robb Barrow MD Primary Care Provider Mackenzie bishop Encounter Details Date Type Department Care Team (Late st Contact Info) Description 06/06/2017 Conversion Encounter [facility] - [address] [address] Social History Tobacco Use Types Packs/Day Years [...] on filedocumented in this encounter Care Teams Treadle Cut Off Saw Operator Relationship Specialty Start Date End Date Robb Barrow MD PCP - General 05/31/17 01/30/23 documented as of this encounter
--- OUTSIDE RECORDS SUMMARY | 2025-02-26 09:33 | XMS_ITS | Clinical Summary ---
Author Organization [facility] Address [address] [place], [place] [phone] Phone Care Team Providers Care Water Resources Engineer Name Role Phone Unavailable Primary Care Provider Unavailabl e Immunizations Immunization Administration Dates Next Due DTaP 5 06/03/2003, [...]
[2025-02-26 09:52] LABS: MANUAL DIFF FLAG NO
[2025-02-26 10:07] LABS: Basophils Percent Auto 0.6 % (0-2); Eosinophils Absolute Auto 0.1 X10*3/uL (0.0-0.4); Eosinophils Percent Auto 1.9 % (0-4); Hematocrit 43.5 % (42.0-52.0); Hemoglobin 14.9 g/dl (14.0-18.0); Imm Gran Abs Auto 0.05 X10*3/uL (0.00-0.03); Imm Gran Pct Auto 0.8 % (0.0-0.4); Lymphocytes Absolute Auto 2.1 X10*3/uL (1.2-4.9); Lymphocytes Percent Auto 32.4 % (20-40); Mean Corpuscular HGB Conc 34.3 g/dl (31.0-36.0); Mean Corpuscular Hemoglobin 25.7 pg (27.0-33.0); Mean Platelet Volume 9.7 fL (9.4-12.4); Monocytes Absolute Auto 0.4 X10*3/uL (0.1-1.2); Monocytes Percent Auto 6.9 % (2-11); Neutrophils Absolute Auto 3.6 x10*3/uL (2.0-8.3); Neutrophils Percent Auto 57.4 % (45-73); Platelet Count 271 X10*3/uL (160-400); Red Cell Distribution Width 13.4 % (11.0-16.0); White Blood Count 6.4 X10*3/uL (4.8-10.8)
[2025-02-26 10:50] LABS: Alanine Aminotransferase 64 U/L (0-40); Albumin Level 4.7 g/dL (3.5-5.0); Alkaline Phosphatase 83 U/L (39-117); Anion Gap 11 (12-20); Aspartate Amino Transferase 38 U/L (5-37); Bilirubin Total 0.5 mg/dL (0.0-1.0); Blood Urea Nitrogen 8 mg/dL (9-16); Calcium 9.5 mg/dL (8.4-10.2); Carbon Dioxide 27 mmol/L (22-29); Chloride 99 mmol/L (96-108); Cholesterol 196 mg/dL (<200); Estimated Glomerular Filt Rate > 60; Glucose Fasting 289 mg/dL (60-99); HDL Cholesterol 30 mg/dL (>40); Potassium 4.1 mmol/L (3.3-5.1); Sodium 133 mmol/L (135-145); Total Protein 7.4 g/dL (6.5-8.0); Triglycerides 529 mg/dL (<150)
[2025-02-26 11:06] LABS: TSH reflex Free T4 1.38 uIU/mL (0.32-4.0)
[2025-02-26 13:28] LABS: Appearance Urine Turbid; Color Urine Yellow; Glucose Urine UA 250 mg/dL (Negative); Leukocyte Esterase Urine Negative (Negative); Nitrite Urine Negative (Negative); Specific Gravity - Urine >= 1.030 (1.005-1.025); UMIC TRIGGER UACC YES; Urine Blood Trace (Negative); Urine Ketones Negative (Negative); Urine Protein 100 (2+) mg/dL (Neg-Trace)
[2025-02-26 13:34] LABS: Bacteria Urine None Seen (None Seen); Hyaline Casts Urine 0-2 /LPF (0-2); RBC Urine 0-2 /HPF (0-2); Squamous Epithelial Cell Urine 0-2 /HPF (0-2); WBC Urine 0-5 /HPF (0-5)
== END 2025-02-26 09:19 | disposition home or self-care (01) ==
LOC: HO.HMGCLDS 09:18
PROVIDERS: PCP Nurse Practitioner Family; Visit Provider Nurse Practitioner Family
DX: Z00.00 Encounter for general adult medical examination without abnormal findings (principal); Z11.1 Encounter for screening for respiratory tuberculosis
CPT/HCPCS: 36415; 80053; 80061; 81001; 84443; 85025; 86481

== ENCOUNTER 2025-03-03 11:31 | Outpatient (REF) | payer OTHER, MEDICAID, SELFPAY ==
--- OUTSIDE RECORDS SUMMARY | 2025-03-03 12:28 | XMS_ITS | Encounter Summary ---
Author Organization [facility] Address [address] [place] [phone] Phone Care Team Providers Care Crab Backer Name Role Phone Robb Barrow MD Primary Care Provider Mackenzie bishop Encounter Details Date Type Department Care Team (Late st Contact Info) Description 06/06/2017 Conversion Encounter [facility] - [address] [address] Social History Tobacco Use Types Packs/Day Years [...] on filedocumented in this encounter Care Teams Crab Backer Relationship Specialty Start Date End Date Robb Barrow MD PCP - General 05/31/17 01/30/23 documented as of this encounter
--- OUTSIDE RECORDS SUMMARY | 2025-03-03 12:28 | XMS_ITS | Encounter Summary ---
Author Organization [facility] Address [address] [place] [phone] Phone Care Team Providers Care Educational Therapist Name Role Phone Robb Barrow MD Primary Care Provider Mackenzie bishop Encounter Details Date Type Department Care Team (Late st Contact Info) Description 08/21/2011 Documentation [facility] [address] [place] [address] Family Medicine, Physician [address] [place], [place] [phone] Social History Tobacco Use Types Packs/Day Years [...] on filedocumented in this encounter Care Teams Educational Therapist Relationship Specialty Start Date End Date Robb Barrow MD PCP - General 05/31/17 01/30/23 documented as of this encounter
--- OUTSIDE RECORDS SUMMARY | 2025-03-03 12:28 | XMS_ITS | Clinical Summary ---
Author Organization [facility] Address [address] [place], [place] [phone] Phone Care Team Providers Care Mobile Health Vehicle Operator Name Role Phone Unavailable Primary Care Provider [...]
--- OUTSIDE RECORDS SUMMARY | 2025-03-03 12:28 | XMS_ITS | Encounter Summary ---
Author Organization [facility] Address [address] [place] [address] Phone Care Team Providers Care Trolley Car Operator Name Role Phone Robb Barrow MD Primary Care Provider Mackenzie bishop Encounter Details Date Type Department Care Team (Late st Contact Info) Description 05/31/2010 Documentation [facility] [address] [place] [address] Family Medicine, Physician [address] [place], [place] [id number] Social History Tobacco Use Types Packs/Day Years [...] on filedocumented in this encounter Care Teams Trolley Car Operator Relationship Specialty Start Date End Date Robb Barrow MD PCP - General 05/31/17 01/30/23 documented as of this encounter
[2025-03-08 00:49] LABS: TSpotTB Invalid (Negative)
== END 2025-03-03 11:32 | disposition home or self-care (01) ==
LOC: HO.HMGCLDS 11:31
PROVIDERS: PCP Nurse Practitioner Family; Visit Provider Nurse Practitioner Family
DX: Z11.1 Encounter for screening for respiratory tuberculosis (principal)
CPT/HCPCS: 36415; 86481

== ENCOUNTER 2025-03-09 09:17 | Outpatient (REF) | payer OTHER, SELFPAY ==
--- OUTSIDE RECORDS SUMMARY | 2025-03-09 10:03 | XMS_ITS | Encounter Summary ---
Author Organization [facility] Address [address] [place] [address] Phone Care Team Providers Care End Finder Forming Department Name Role Phone Robb Barrow MD Primary Care Provider Mackenzie bishop Encounter Details Date Type Department Care Team (Late st Contact Info) Description 08/21/2011 Documentation [facility] [address] [place] [address] Family Medicine, Physician [address] [place], [place] [address] Social History Tobacco Use Types Packs/Day Years [...] on filedocumented in this encounter Care Teams End Finder Forming Department Relationship Specialty Start Date End Date Robb Barrow MD PCP - General 05/31/17 01/30/23 documented as of this encounter
--- OUTSIDE RECORDS SUMMARY | 2025-03-09 10:03 | XMS_ITS | Clinical Summary ---
Author Organization [facility] Address [address] [place], [place] [phone] Phone Care Team Providers Care Director Service Name Role Phone Unavailable Primary Care Provider [...]
--- OUTSIDE RECORDS SUMMARY | 2025-03-09 10:03 | XMS_ITS | Encounter Summary ---
Author Organization [facility] Address [address] [place] [address] Phone Care Team Providers Care Inset Cutter Name Role Phone Robb Barrow MD Primary Care Provider Mackenzie bishop Encounter Details Date Type Department Care Team (Late st Contact Info) Description 06/06/2017 Conversion Encounter [facility] - [address] [address] Social History Tobacco Use Types Packs/Day Years [...] on filedocumented in this encounter Care Teams Inset Cutter Relationship Specialty Start Date End Date Robb Barrow MD PCP - General 05/31/17 01/30/23 documented as of this encounter
--- OUTSIDE RECORDS SUMMARY | 2025-03-09 10:03 | XMS_ITS | Encounter Summary ---
Author Organization [facility] Address [address] [place] [address] Phone Care Team Providers Care Secondary School Registrar Name Role Phone Robb Barrow MD Primary Care Provider Mackenzie bishop Encounter Details Date Type Department Care Team (Late st Contact Info) Description 05/31/2010 Documentation [facility] [address] [place] [address] Family Medicine, Physician [address] [place], [place] [phone] Social History Tobacco Use Types Packs/Day Years [...] on filedocumented in this encounter Care Teams Secondary School Registrar Relationship Specialty Start Date End Date Robb Barrow MD PCP - General 05/31/17 01/30/23 documented as of this encounter
== END 2025-03-09 09:18 | disposition home or self-care (01) ==
LOC: HO.HMGCLDS 09:17
PROVIDERS: PCP Nurse Practitioner Family; Visit Provider Nurse Practitioner Family
DX: Z11.1 Encounter for screening for respiratory tuberculosis (principal)
CPT/HCPCS: 36415; 86481

== ENCOUNTER 2025-03-19 10:21 | Outpatient (REF) | payer OTHER, SELFPAY ==
--- NOTE | ~2025-03-19 | XR_ITS ---
EXAMINATION: XR CHEST CLINICAL INFORMATION: Z11.1 - Encounter for screening for respiratory tuberculosis COMPARISON: None available. TECHNIQUE: 2 views of the chest were obtained. FINDINGS: The cardiac, hilar, and mediastinal contours are normal. The lungs are clear bilaterally. There is no pneumothorax or pleural effusion. There is no focal osseous or soft tissue abnormality. XR/XR chest 2V IMPRESSION: Normal chest. Electronically signed by: Rudy Ramirez MD 03/19/2025 10:43 AM EDT
--- OUTSIDE RECORDS SUMMARY | 2025-03-19 11:02 | XMS_ITS | Encounter Summary ---
Author Organization [facility] Address [address] [place] [address] Phone Care Team Providers Care Hack Saw Operator Name Role Phone Robb Barrow MD Primary Care Provider Mackenzie bishop Encounter Details Date Type Department Care Team (Late st Contact Info) Description 06/06/2017 Conversion Encounter [facility] - [address] [address] Social History Tobacco Use Types Packs/Day Years [...] on filedocumented in this encounter Care Teams Hack Saw Operator Relationship Specialty Start Date End Date Robb Barrow MD PCP - General 05/31/17 01/30/23 documented as of this encounter
== END 2025-03-19 10:22 | disposition home or self-care (01) ==
LOC: HO.HMGCX 10:21
PROVIDERS: PCP Nurse Practitioner Family; Visit Provider Nurse Practitioner Family
DX: Z11.1 Encounter for screening for respiratory tuberculosis (principal)
CPT/HCPCS: 71046

== ENCOUNTER → 2025-03-19 10:25 | Outpatient (BNV) | payer OTHER, SELFPAY | PROVIDERS: PCP Nurse Practitioner Family; Visit Provider Radiology Diagnostic Radiology | DX: Z11.1 Encounter for screening for respiratory tuberculosis (principal) | CPT/HCPCS: 71046 ==

== ENCOUNTER 2025-04-01 13:13 | Outpatient (REF) | payer OTHER, SELFPAY ==
[2025-04-01 16:27] LABS: Estimated Average Glucose 209 mg/dL; Hemoglobin A1c % 8.9 % (<6.0)
== END 2025-04-01 13:14 | disposition home or self-care (01) ==
LOC: HO.HMGCLDS 13:13
PROVIDERS: PCP Nurse Practitioner Family; Referring Provider Nurse Practitioner Family
DX: E11.9 Type 2 diabetes mellitus without complications (principal)
CPT/HCPCS: 36415; 83036

== ENCOUNTER → 2025-04-06 07:16 | Outpatient (BNVA) | payer OTHER, SELFPAY | PROVIDERS: PCP Nurse Practitioner Family; Visit Provider Nurse Practitioner Family | DX: Z13.89 Encounter for screening for other disorder (principal) ==

== ENCOUNTER 2025-04-07 07:19 | Outpatient (AMB) | payer OTHER, SELFPAY ==
--- OUTSIDE RECORDS SUMMARY | 2025-04-07 07:22 | XMS_ITS | Encounter Summary ---
Author Organization [facility] Address [address] [place] [address] Phone Care Team Providers Care Mountain Or Glacier Guide Name Role Phone Robb Barrow MD Primary Care Provider Mackenzie bishop Encounter Details Date Type Department Care Team (Late st Contact Info) Description 06/06/2017 Conversion Encounter [facility] - [address] [address] Social History Tobacco Use Types Packs/Day Years [...] on filedocumented in this encounter Care Teams Mountain Or Glacier Guide Relationship Specialty Start Date End Date Robb Barrow MD PCP - General 05/31/17 01/30/23 documented as of this encounter
--- NOTE | 2025-04-07 07:53 | A.OFFPC_ITS ---
Intake Visit Reasons: F/U lab results Allergies Nsaids Allergy (Unknown, Uncoded 04/07/25 08:04) on sertraline Medication List - Last Reconciled 04/07/25 by FADI Cadet alcohol swabs (Alcohol Prep Pads) 1 pad topical BID atorvastatin 10 mg PO DAILY 90 days blood sugar diagnostic (FreeStyle Lite Strips) Check blood sugar twice daily as directed blood-glucose meter (FreeStyle Lite Meter kit) check blood sugar twice daily as directed buspirone 5 mg PO BEDTIME buspirone 10 mg PO TID cholecalciferol (vitamin D3) 50 mcg PO DAILY 90 days fenofibrate micronized 67 mg PO DAILY hydroxyzine HCl 10 mg PO BID ketoconazole 2% 1 appl topical DAILY lancets (FreeStyle Lancets) Check blood sugar twice daily as directed lisinopril 10 mg PO DAILY metformin 1,000 mg PO BID 30 days omega-3 acid ethyl esters 1 cap PO BID 30 days ondansetron 4 mg PO Q8H PRN sertraline 100 mg PO DAILY sertraline 50 mg PO DAILY tirzepatide (Mounjaro) 2.5 mg (0.5 mL) subcut QWEEK trazodone 50 mg PO BEDTIME vancomycin (Vancocin) 125 mg PO QID 10 days Tobacco use date assessed: 09/01/24 Dental Screening Dental Screen Date: 09/01/24 HPI F/U lab results HPI Details Patient is here for a telehealth visit for follow-up for diabetes. He denies any polyuria, polydipsia neuropathy. Reinforced the importance of getting yearly eye exams. He is tolerating metformin b.i.d., will increase to 1000 mg twice a day. I will also start him on a GLP 1 agonist. He reports he knows the side effects of this class of medication, denies any history of pancreatitis. He has followed up with our nurse navigator already for education. I will have him get more labs in about a month month and a half. [facility] Medical History Fatty liver Splenomegaly Surgical History No pertinent past surgical history Family History Father Substance use disorder Mental health disorder Paternal Grandmother Substance use disorder Mother Mental health disorder Social History Housing: House Patient Tobacco Use Status: Never used Tobacco e-Cigarette/Vaping Use: Never Used Second Hand Smoke Exposure: No Cognitive needs: No Hearing needs: No Vision needs: Yes Questionnaire Thrive Questionnaire Date Thrive assessed: 09/01/24 SEFERINO-7 AMB Questionnaire SEFERINO-7 Date SEFERINO - 7 assessed: 09/01/24 Source: Developed by Drs. Boubacar Victor, Huong Deleon, Laz Espinal and colleagues, with an educational karen from [employer]. Physical exam (Primary Care) Tobacco/Smoking Status: Tobacco use Status Tobacco use date assessed 09/01/24 09/01/24 15:27 Patient Tobacco Use Status Never used Tobacco 09/01/24 15:27 e-Cigarette/Vaping Use Never Used 09/01/24 15:27 Thrive Assessment: Date of Thrive Assessment Date Thrive assessed 09/01/24 04/01/25 15:05 Coding Level of Care Code Tele Est Pt Level 3 (77081) Diagnoses High triglycerides E78.1 Dyslipidemia E78.5 Diabetes E11.9 Assessment & Plan Assessment & Plan (1) High triglycerides: Code(s): E78.1 - Pure hyperglyceridemia Category: Medical (2) Dyslipidemia: Code(s): E78.5 - Hyperlipidemia, unspecified Category: Medical (3) Diabetes: Code(s): E11.9 - Type 2 diabetes mellitus without complications Category: Medical Plan . Medications: New tirzepatide (Mounjaro) for 4 weeks 2.5 mg (0.5 mL) subcut QWEEK 2 mL 0RF Changed From metformin 500 mg PO BID 30 days 60 tabs 3RF To metformin 1,000 mg PO BID 60 tabs 3RF 30 days
== END 2025-04-07 08:02 | disposition home or self-care (01) ==
LOC: HO.HMCC 07:19
PROVIDERS: PCP Nurse Practitioner Family; Visit Provider Nurse Practitioner Family
DX: E78.1 Pure hyperglyceridemia (principal); E78.5 Hyperlipidemia, unspecified; E11.9 Type 2 diabetes mellitus without complications

== ENCOUNTER → 2025-04-07 07:19 | Outpatient (BNVA) | payer OTHER, SELFPAY | PROVIDERS: PCP Nurse Practitioner Family; Visit Provider Nurse Practitioner Family ==

== ENCOUNTER 2025-05-06 08:50 | Outpatient (REF) | payer OTHER, SELFPAY ==
--- OUTSIDE RECORDS SUMMARY | 2025-05-06 09:06 | XMS_ITS | Clinical Summary ---
Author Organization [address] [facility] Address [address] [place] [address] Phone Care Team Providers Care Coconut Boiler Name Role Phone RalfnorahJamel NP Primary Care Provider [phone] Medical History Medical History Date Comments Fracture of fifth metacarpal bone of right hand 2010 DX:Fracture of fifth metacar pal bone of right hand; COMMENT: s/p pinnig Asthma DX:Asthma; COMME NT: when littel no sx for years Childhood obesity 03/21/2012 DX:Childhood o besity Family History Medical History Relation Name Comments Obesity Other 1 Hypertension Other 2 Hyperlipidemia Other 3 Diabetes Other 4 Relation Name Status Comments Father Alive jorje fletcher Mother Alive alissa fletcher Other 1 Other 2 Other 3 Other 4 Other 5 Social History Tobacco Use Types Packs/Day Years Used Date Smoking Tobacco: Never Smokeless Tobacco: Never Alcohol Use Standard Drinks/Week Comments Not Asked 0 (1 standard drink = 0.6 oz pur e alcohol) Sex and Gender Information Value Date Recorded Sex Assigned at Not on file Legal Sex Male 11:33 PM EST Gender Identity Not on file Sexual Orientation Not on file Obstetrics History Plan of Treatment Upcoming Encounters Date Type Department Care Team ([facility] Contact Info) Description 06/23/2025 1:45 PM EDT Consult Orthopedic Surgery [facility] [address] [phone] Miguel Schafer, DPM [address] [address] Health Maintenance Due Date Last Done Comments Diabetes: Annual GFR (Glomerular Filtration Rate) 1997 Diabetes: Annual Foot Exam 2007 Diabetes: Annual Retina Eye Exam 2007 HPV Vaccines (2 - Male 3-dose series) 04/13/2015 03/16/2015 Pneumococcal Vaccine: Pediatrics (0 to 5 Years) and At-Risk Patients (6 to 49 Years) (1 of 2 - PCV) 2016 DTaP,Tdap,and Td Vaccines (7 - Td or Tdap) 12/21/2019 12/20/2009, 06/03/2003, 04/17/1999, Additional history exists COVID-19 Vaccine ( season) 2024 Cholesterol Screening (Lipid Panel) 04/06/2025 Depression Screening 04/06/2025 Diabetes: Annual Urine Albumin-Creatinine Ratio (uACR) 04/06/2025 Diabetes: Blood Sugar Control Test (HGBA1C) 04/06/2025 HIV Screening 04/06/2025 Hepatitis C Screening 04/06/2025 Social Influencers of Health Screening 04/06/2025 Influenza Vaccine (#1) 2025 06/26/2013, 2008 Hepatitis B Vaccines Completed 06/13/1998, 1997, 1997 HIB Vaccines Completed 04/17/1999, 06/22, 03/25/1998, Additional history exists MMR Vaccines Completed 06/10/2001, 01/31/1999 IPV Vaccines Completed 06/03/2003, 03/22, 04/17/1999, Additional history exists Varicella Vaccines Completed 12/20/2009, 06/16/1999 Meningococcal ACWY Vaccine Completed 03/16/2015, Hepatitis A Vaccines Aged Out No long er eligible based on patient's age to complete this topic Meningococcal B Vaccine Aged Out No l onger eligible based on patient's age to complete this topic RSV Immunization Patients Under 20 months Aged Out No longer eligible based on patient's age to complete this topic Insurance [facility] MEDICAID - [place] Care Teams Coconut Boiler Relationship Specialty Start Date End Date Jamel Ch NP [address] [place] [address] PCP - General Family Medicine 04/06/25
--- OUTSIDE RECORDS SUMMARY | 2025-05-06 09:06 | XMS_ITS | Encounter Summary ---
Author Organization [facility] Address [address] [place] [phone] Phone Care Team Providers Care Clinic Manager Name Role Phone Robb Barrow MD Primary Care Provider Mackenzie bishop Encounter Details Date Type Department Care Team (Late st Contact Info) Description 06/06/2017 Conversion Encounter [facility] - [address] [address] Social History Tobacco Use Types Packs/Day Years [...] on filedocumented in this encounter Care Teams Clinic Manager Relationship Specialty Start Date End Date Robb Barrow MD PCP - General 05/31/17 01/30/23 documented as of this encounter
[2025-05-06 10:52] LABS: Alanine Aminotransferase 33 U/L (0-40); Albumin Level 5.0 g/dL (3.5-5.0); Alkaline Phosphatase 56 U/L (39-117); Anion Gap 12 (12-20); Aspartate Amino Transferase 30 U/L (5-37); Blood Urea Nitrogen 12 mg/dL (9-16); Calcium 9.4 mg/dL (8.4-10.2); Carbon Dioxide 28 mmol/L (22-29); Chloride 106 mmol/L (96-108); Cholesterol 149 mg/dL (<200); Estimated Glomerular Filt Rate > 60; HDL Cholesterol 30 mg/dL (>40); Potassium 3.9 mmol/L (3.3-5.1); Sodium 142 mmol/L (135-145); Total Protein 7.1 g/dL (6.5-8.0); Triglycerides 219 mg/dL (<150)
[2025-05-06 10:54] LABS: Hemoglobin A1C 182.8714 umol/L; Total Hemoglobin (HGBA1C) 3662.8139 umol/L
[2025-05-06 13:47] LABS: Microalbum/Creatinine Ratio Ur 11.7 ug/mg cr (<30)
== END 2025-05-06 08:51 | disposition home or self-care (01) ==
LOC: HO.HMGCLDS 08:50
PROVIDERS: PCP Nurse Practitioner Family; Visit Provider Nurse Practitioner Family
DX: E78.1 Pure hyperglyceridemia (principal); E78.5 Hyperlipidemia, unspecified; E11.9 Type 2 diabetes mellitus without complications
CPT/HCPCS: 36415; 80053; 80061; 82043; 82570; 83036; 83721

== ENCOUNTER 2025-09-06 10:50 | Outpatient (REF) | payer MEDICAID, OTHER, SELFPAY ==
[2025-09-06 13:06] LABS: MANUAL DIFF FLAG NO
[2025-09-06 13:18] LABS: Appearance Urine Clear; Glucose Urine UA >=1000 mg/dL (Negative); PH 5.5 (5.0-9.0); Specific Gravity - Urine 1.025 (1.005-1.025); UMIC TRIGGER UACC YES
[2025-09-06 13:36] LABS: Hematocrit 43.9 % (42.0-52.0); Hemoglobin 14.3 g/dl (14.0-18.0); Imm Gran Abs Auto 0.03 X10*3/uL (0.00-0.03); Imm Gran Pct Auto 0.4 % (0.0-0.4); Lymphocytes Absolute Auto 2.7 X10*3/uL (1.2-4.9); Mean Corpuscular HGB Conc 32.6 g/dl (31.0-36.0); Mean Corpuscular Hemoglobin 25.9 pg (27.0-33.0); Mean Corpuscular Volume 79.5 fL (80.0-98.0); NRBC Abs Auto 0.000 X10*3/uL (0.0-0.012); NRBC Pct Auto 0.0 /100WBC (0.0-0.2); Platelet Count 332 X10*3/uL (160-400); Red Blood Count 5.52 X10*6/uL (4.60-5.80); White Blood Count 8.5 X10*3/uL (4.8-10.8)
[2025-09-06 13:42] LABS: Microalbum/Creatinine Ratio Ur 9.3 ug/mg cr (<30)
[2025-09-06 14:11] LABS: Alanine Aminotransferase 45 U/L (0-40); Albumin Level 4.9 g/dL (3.5-5.0); Alkaline Phosphatase 54 U/L (39-117); Anion Gap 12 (12-20); Aspartate Amino Transferase 27 U/L (5-37); Blood Urea Nitrogen 14 mg/dL (9-16); Calcium 9.4 mg/dL (8.4-10.2); Carbon Dioxide 27 mmol/L (22-29); Chloride 104 mmol/L (96-108); Cholesterol 183 mg/dL (<200); Estimated Glomerular Filt Rate > 60; HDL Cholesterol 37 mg/dL (>40); Potassium 3.9 mmol/L (3.3-5.1); Sodium 139 mmol/L (135-145); Total Protein 7.0 g/dL (6.5-8.0); Triglycerides 226 mg/dL (<150)
== END 2025-09-06 10:51 | disposition home or self-care (01) ==
LOC: HO.HMGCLDS 10:50
PROVIDERS: PCP Nurse Practitioner Family; Visit Provider Nurse Practitioner Family
DX: E11.9 Type 2 diabetes mellitus without complications (principal)
CPT/HCPCS: 36415; 80053; 80061; 81001; 82043; 82570; 83036; 84443; 85025

== ENCOUNTER 2025-09-08 07:52 | Outpatient (AMB) | payer OTHER, SELFPAY ==
[2025-09-08 07:56] VITALS: BP 122/80; PULSE 91; O2SAT 97; BMI 39.0
--- NOTE | 2025-09-08 07:56 | MHC.PC.OV ---
Vital Signs 09/08/25 07:56 Height 5 ft 10 in Weight 272 lb BMI 39.0 BP 122/80 Blood Pressure Location Lt brachial Position Sitting Pulse 91 Pulse Source Pulse Oximeter Pulse Oximetry (%) 97 Intake Visit Reasons: Annual PE Allergies Nsaids Allergy (Unknown, Uncoded 09/08/25 08:28) on sertraline Medication List - Last Reconciled 09/08/25 by ALEAH CadetP- alcohol swabs (Alcohol Prep Pads) 1 pad topical BID atorvastatin 10 mg PO DAILY 90 days betamethasone dipropionate 0.05% 1 appl topical DAILY PRN blood sugar diagnostic (FreeStyle Lite Strips) Check blood sugar twice daily as directed blood-glucose meter (FreeStyle Lite Meter kit) check blood sugar twice daily as directed buspirone 5 mg PO BEDTIME buspirone 10 mg PO TID empagliflozin (Jardiance) 10 mg PO DAILY 30 days fenofibrate micronized 67 mg PO DAILY hydroxyzine HCl 10 mg PO BID ketoconazole 2% 1 appl topical DAILY lancets (FreeStyle Lancets) Check blood sugar twice daily as directed lisinopril 10 mg PO DAILY metformin 1,000 mg PO BID omega-3 acid ethyl esters 1 cap PO BID sertraline 100 mg PO DAILY sertraline 50 mg PO DAILY trazodone 50 mg PO BEDTIME Tobacco use date assessed: 09/08/25 Dental Screening Dental Screen Date: 09/08/25 Did you have a dental visit in the last 12 months?: Yes Did you have a dental problem in the last 6 months where you did not have access to dental care?: No Was dental information given to patient?: Patient has dentist HPI Annual PE HPI Details History of Present Illness The patient is a 29-year-old male presenting for a physical exam and diabetes follow-up. For his diabetes, he is taking Jardiance and is doing well, with his last HbA1c at 5.8%. He is making efforts to monitor his diet. The patient has a history of morbid obesity. He anticipates being more physically active as a student. He reports that his eye exam is up-to-date. Health Maintenance - The patient is actively managing his diabetes and is trying to watch his diet. - He is planning to become more physically active. - He reports his eye exam is up to date. - He received a flu vaccine today. - A pneumonia vaccination is planned for the near future. Social History - Education: The patient is a student. - Exercise: He plans to be more active. - Diet: He is trying to watch his diet more closely. Review of Systems - Constitutional: Denies fevers and chills. - Eyes: Denies blurred vision. - Cardiovascular: Denies chest pain. - Respiratory: Denies shortness of breath. - Gastrointestinal: Denies abdominal pain, blood in stool, constipation, and diarrhea. - Neurological: Denies neuropathy. Physical Exam General: Cooperative, healthy appearing, comfortable, no acute distress and well developed, morbidly obese Orientation: Patient oriented x3 Limitations: No limitations Head: Normal to inspection Ears: Hearing grossly normal bilaterally Nose: Normal external nose present Face and sinus: Normal facial exam Eyes: Appearance normal, both eyes and all related structures Neck: Normal visual inspection and Yes full ROM Respiratory: Normal respiratory effort and able to speak in complete sentences. Clear to auscultation bilaterally Cardiovascular: Regular rate and rhythm. Normal S1 and S2 GI: Normal to inspection. Soft to palpation and nontender : superior to right testicle with ? mass/cyst (large). not tender with touch Skin: ? Psoriasis noted at the base of the toes on the left foot dorsal aspect Neuro: Patient oriented x3 Extremities: Normal to inspection, positive sensation with monofilament test Results - Labs: Last HbA1c was 5.8%. Plan 1. Type 2 Diabetes Mellitus The patient's diabetes is well-controlled, with his last HbA1c being 5.8%. He will continue taking Jardiance, monitoring his diet, and is encouraged to be more active. He received a flu vaccine today and will be scheduled for a pneumonia vaccination in the near future. 2. Morbid Obesity The patient is still morbidly obese. He is encouraged by his new student status to be more active and continue to watch his diet. 3. Psoriasis A psoriatic-appearing lesion was noted on the dorsal aspect of the base of his toes on the left foot. A prescription for a steroid cream will be sent for this. He was advised to continue using lotion and diabetic foot cream. 4. scrotal mass Discussion Notes I discussed with the patient that his diabetes is well-controlled, with an impressive last HbA1c of 5.8%. We agreed he should continue Jardiance and his diet modifications, and I am happy he will be more active as a student. I noted a rash on his left foot that appears to be psoriasis, and I will prescribe a steroid cream for it, advising him to also continue using lotion and diabetic foot cream. The patient received his flu vaccine today, and we will arrange for a pneumonia vaccination in the near future. Patient Instructions - Continue taking your Jardiance medication as prescribed. - Keep watching your diet and try to be more active now that you are a student. - Apply the steroid cream that was prescribed to the rash on your left foot. - Continue using lotion or diabetic foot cream on your feet. - You received your flu shot today. - We will have you get a pneumonia shot in the near future. [facility] Medical History Fatty liver Splenomegaly Surgical History No pertinent past surgical history Family History Father Substance use disorder Mental health disorder Paternal Grandmother Substance use disorder Mother Mental health disorder Social History Housing: House Patient Tobacco Use Status: Never used Tobacco e-Cigarette/Vaping Use: Never Used Second Hand Smoke Exposure: No Cognitive needs: No Hearing needs: No Vision needs: Yes Questionnaire PHQ-9 Over the last 2 weeks, how often have you been bothered by any of the following problems? 1. Little interest or pleasure in doing things: not at all 2. Feeling down, depressed, or hopeless: not at all 3. Trouble falling or staying asleep, or sleeping too much: not at all 4. Feeling tired or having little energy: not at all 5. Poor appetite or overeating: not at all 6. Feeling bad about yourself - or that you are a failure or have let yourself or your family down: not at all 7. Trouble concentrating on things, such as reading the newspaper or watching television: not at all 8. Moving or speaking so slowly that other people could have noticed. Or the opposite - being so fidgety or restless that you have been moving around a lot more than usual: not at all 9. Thoughts that you would be better off or of hurting yourself in some way: not at all Total score: 0 Depression Screening Interpretation: Negative Depression Screening Done: Yes 33229 - PHQ-9 Billing: Yes Source: Developed by Drs. Boubacar Victor, Huong Deleon, Laz Espinal and colleagues, with an educational karen from [employer]. Thrive Questionnaire Date Thrive assessed: 05/13/25 I am a: Patient What is your living situation today?: I choose not to answer this question Within the past 12 months, did the food you bought not last and you didn't have the money to get more?: I choose not to answer this question Within the past 12 months, did you worry whether your food would run out before you got money to buy more?: I choose not to answer this question Do you have trouble paying for medicines?: I choose not to answer this question Do you have trouble getting transportation to medical appointments?: I choose not to answer this question Do you have trouble paying your heating and electricity bill?: I choose not to answer this question Do you have trouble taking care of your child, family member or friend?: I choose not to answer this question Do you have trouble with day-to-day activities such as bathing, preparing meals, shopping, managing finances, etc.?: I choose not to answer this question Are you currently unemployed and looking for a job?: I choose not to answer this question Are you interested in more education?: I choose not to answer this question Please select the resources that you would like help with: None Currently or been in a relationship where the following occur: I choose not to answer THRIVE Score: 0 AUDIT C Alcohol Use Questionnaire (AUDIT-C) 1. How often do you have a drink containing alcohol?: Never 3. How often do you have six or more drinks on one occasion?: Never Total Score: 0 Score Reviewed/Action Taken: Yes SEFERINO-7 AMB Questionnaire SEFERINO-7 Date SEFERINO - 7 assessed: 09/08/25 Feeling nervous, anxious, or on edge: 0 = Not at all Not being able to stop or control worryin = Not at all Worrying too much about different things: 0 = Not at all Trouble relaxin = Not at all Being so restless that it is hard to sit still: 0 = Not at all Becoming easily annoyed or irritable: 0 = Not at all Feeling afraid as if something awful might happen: 0 = Not at all Total SEFERINO-7 score (0-4 normal; 5-9 mild; 10-14 moderate; 15-21 severe): 0 Source: Developed by Drs. Boubacar Victor, Huong Deleon, Laz Espinal and colleagues, with an educational karen from [employer]. SEFERINO-7 Assessment Billing SEFERINO-7 Assessment Tool: SEFERINO-7 Assessment 63462 Physical exam (Primary Care) Vital Signs: Last Vital Signs Pulse 91 09/08/25 07:56 BP 122/80 09/08/25 07:56 Pulse Ox 97 09/08/25 07:56 BMI result Body Mass Index 39.0 Tobacco/Smoking Status: Tobacco use Status Tobacco use date assessed 09/08/25 09/08/25 07:58 Patient Tobacco Use Status Never used Tobacco 09/08/25 07:58 e-Cigarette/Vaping Use Never Used 09/08/25 07:58 PHQ-9: PHQ-9 Score PHQ-9: Total score 0 09/08/25 08:13 Depression Screening Interpretation: Negative Thrive Assessment: Date of Thrive Assessment Date Thrive assessed 05/13/25 09/08/25 07:58 Currently or been in a relationship where the following occur: I choose not to answer Office Procedures Flu Questionnaire Does the patient have a severe egg allergy?: No Does the patient have severe life threatening allergies?: No Does the patient have a fever or illness today?: No Has the patient ever had Guillain-[place] Syndrome?: No Has the patient ever had any past reaction to a flu shot?: No Immunizations Fluarix [id number] (PF) 45 mcg (15 mcg x 3)/0.5 mL IM syringe Performing Provider: FADI Cadet Performing Location: [facility] Administered by: Maryanne Gutierrez MA on 09/08/25 08:26 Dose Route Admin Location Dispensed Lot Number Expiration Date [facility] Associate Professor Of Forestry 0.5 mL IM Right Deltoid 0.5 mL [id number] 04/19/26 [id number] [employer] VIS Given Date VIS Provided VIS Publication Date 09/08/25 Single Vaccine 24 Eligibility Eligibility Date Funding Source Not [facility] Eligible 09/08/25 Private Coding Level of Care Code Est Pt Level 3 (34543) Est Pt Prev Care 18-39y(07442) Diagnoses Physical exam Z00.00 Diabetes E11.9 Scrotal mass N50.89 Additional Codes SEFERINO-7 Assessment Billing - SEFERINO-7 Assessment Tool: SEFERINO-7 Assessment 74116 ([id number]) PHQ-9 - 59190 - PHQ-9 Billing: Yes ([id number]) Assessment & Plan Assessment & Plan (1) Physical exam: Code(s): Z00.00 - Encounter for general adult medical examination without abnormal findings Category: Medical (2) Diabetes: Code(s): E11.9 - Type 2 diabetes mellitus without complications Category: Medical (3) Scrotal mass: Code(s): N50.89 - Other specified disorders of the male genital organs Category: Medical Plan . Orders: Orders US scrotum Today N50.89 - Other specified disorders of the male genital organs Influenza [id number] Immunization Today Z23 - Encounter for immunization Medications: New betamethasone dipropionate 0.05% 1 appl topical DAILY PRN 45 grams 0RF skin irritation
--- OUTSIDE RECORDS SUMMARY | 2025-09-08 15:23 | XMS_ITS | Encounter Summary ---
Author Organization [facility] Address [address] [place] [phone] Phone Care Team Providers Care Director Of Social Work Name Role Phone Robb Barrow MD Primary Care Provider Mackenzie bishop Encounter Details Date Type Department Care Team (Late st Contact Info) Description 06/06/2017 Conversion Encounter [facility] - [address] [address] Social History Tobacco Use Types Packs/Day Years [...] on filedocumented in this encounter Care Teams Director Of Social Work Relationship Specialty Start Date End Date Robb Barrow MD PCP - General 05/31/17 01/30/23 documented as of this encounter
--- OUTSIDE RECORDS SUMMARY | 2025-09-08 15:23 | XMS_ITS | Clinical Summary ---
Author Organization [facility] Address [address] [facility] [place] [address] Care Team Providers Care Intermodal Owner Operator Truck Driver Name Role Phone Community, Pcp Primary Care Provider Unavailabl e Allergies No known active allergies Medications No known medications Active Problems Problem Noted Date Mixed dyslipidemia 04/08/2012 Overview: Ref to Dr. Burt 04/08/12 05/20/[address] Burt exercise, diet, 1-2-3 program abd u/s blood work next visit including fasting insuline follow up in 3 -4 months 10/25/12 Dr. Burt has lost 20# f/up in 2-3 months Childhood obesity 03/21/2012 Overview: Obesity has been always an issue, has seen diamond cleaver, and seen also by endo In 2007 nothing has worked. History of mix hyperlipidemia 07/02 abdomen ultrasound areas of hepatic steatosis, borderline hepatosplenomegaly Immunizations Name Administration Dates Next Due DTaP 06/03/2003, 9,05/13/1998,01/25,1997 HIB 04/17/1999, 8,03/25/1998,12/24 HPV (Gardasil) 03/16/2015 Hepatitis B-3 Dose (<19yrs) 06/13/1998, 8,1997 Influenza (> 6 Months) 12/01/2008 Influenza (>6 Months) Split Preservative Free 06/26/2013 MMR (Qvyxygw-Izrrc-Jmwzqus) 06/10/2001, 9 Meningococcal (Menactra) 03/16/2015,12/20/2009 Polio (IPV) 06/03/2003, 9,01/25/1998,11/26 Tdap 12/20/2009 Varicella 12/20/2009,06/16/1999 Family History Medical History Relation Name Comments Obesity Other 2 Hypertension Other 3 Cholesterol Level Other 4 Diabetes Other 5 Relation Name Status Comments Father Alive cooper fletcher Mother Alive alissa fletcher Other 1 Other 2 Other 3 Other 4 Other 5 Social History Tobacco Use Types Packs/Day Years Used Date Smoking Tobacco: Never Smokeless Tobacco: Never Alcohol Use Standard Drinks/Week Comments Not Asked 0 (1 standard drink = 0.6 oz pur e alcohol) Sex Assigned at Date Recorded Not on file Last Filed Vital Signs Vital Sign Reading Time Taken Comments Blood Pressure 130/92 03/16/2015 10:51 AM EDT Pulse 76 03/16/2015 10:51 AM EDT Temperature 36.4 C (97.5 F) 03/16/2015 10:51 AM EDT Respiratory Rate 20 12/07/2014 11:4 0 AM EST Oxygen Saturation 98% 12/07/2014 11: 40 AM EST Inhaled Oxygen Concentration - - Weight 139.6 kg (307 lb 12.8 oz) 2014 10:51 AM EDT Height 177.8 cm (5' 10 ) 03/16/2015 10: 51 AM EDT Body Mass Index 44.16 03/16/2015 10:51 AM EDT Plan of Treatment Health Maintenance Due Date Last Done Comments Covid-19 Vaccine (#1) 03/24/1998 TOBACCO CHECK/ADVISE 2015 BASELINE HEALTH EXAM 18-39 2016 DTAP/TDAP/TD (7 - Td or Tdap) 12/21/2019, 06/03/2003, 04/17/1999, Additional history exists CHOLESTEROL SCREENING 03/17/2020 03/17/2015 , 05/06/2013, 03/28/2012 BMI CHECK/ADVISE 10/21/2024 03/16/2015, , 05/06/2013, Additional history exists INFLUENZA (#1) 2025 06/26/2013, 12/01/2008 PNEUMOCOCCAL VACCINE FOR HIG H RISK PATIENTS (#1) 2062 Care Teams Intermodal Owner Operator Truck Driver Relationship Specialty Start Date End Date Community, Pcp PCP - General Internal Medicine 12/13/16
--- OUTSIDE RECORDS SUMMARY | 2025-09-08 15:23 | XMS_ITS | Encounter Summary ---
Author Organization [facility] Address [address] [place] [phone] Phone Care Team Providers Care Halver Machine Operator Name Role Phone Robb Barrow MD Primary Care Provider Mackenzie bishop Encounter Details Date Type Department Care Team (Late st Contact Info) Description 08/21/2011 Documentation [facility] [address] [place] [address] Family Medicine, Physician [address] [place], [place] [id number] Social History Tobacco Use Types Packs/Day Years [...] on filedocumented in this encounter Care Teams Halver Machine Operator Relationship Specialty Start Date End Date Robb Barrow MD PCP - General 05/31/17 01/30/23 documented as of this encounter
--- OUTSIDE RECORDS SUMMARY | 2025-09-08 15:24 | XMS_ITS | Encounter Summary ---
Author Organization [facility] Address [address] [place] [address] Care Team Providers Care Ordnance Corps Officer Name Role Phone Chicho Correa MD Primary Care Provider [facility], Pcp Primary Care Provider [facility] e Reason for Visit * Reason Onset Date Comments Appointment-Internal Referral 08/10/2013 ysiatry Encounter Details Date Type Department Care Team Description 08/10/2013 Telephone Pediatrics - [address] [address] Chicho Correa MD Appointment-Internal Referral (physiatry) Social History Tobacco Use Types Packs/Day Years Used Date Smoking Tobacco: Never Smokeless Tobacco: Never Alcohol Use Standard Drinks/Week Comments Not Asked 0 (1 standard drink = 0.6 oz pur e alcohol) Sex Assigned at Date Recorded Not on file documented as of this encounter Miscellaneous Notes * Telephone Encounter - Harriet Guadalupe - 08/10/2013 10:34 AM EDT Ke, I am sending this message to inform you that this patient has been called 2 times. We have also sent the patient an unable to reach you letter and still have no response. Unfortunately I have to takethis referral off our Physiatry report. Thank You, Harriet Ortega Specialties Department documented in this encounter Plan of Treatment Not on file documented as of this encounter Visit Diagnoses Not on filedocumented in this encounter Care Teams Ordnance Corps Officer Relationship Specialty Start Date End Date Chicho Correa MD PCP - General Pediatrics 11/07/11 12/12/16 [facility], Pcp PCP - General Internal Medicine 12/13/16 documented as of this encounter
--- OUTSIDE RECORDS SUMMARY | 2025-09-08 15:24 | XMS_ITS | Encounter Summary ---
Author Organization [facility] Address [address] [place] [address] Care Team Providers Care Electrical Machine Builder Name Role Phone Chicho Correa MD Primary Care Provider Kait Lund, Pcp Primary Care Provider Karishma nicholas Encounter Details Date Type Department Care Team Description 05/29/2012 MyChart Proxy Form Medical Records [address] [place] [address] Abstract, Provider Social History Tobacco Use Types Packs/Day Years [...] on filedocumented in this encounter Care Teams Electrical Machine Builder Relationship Specialty Start Date End Date Chicho Correa MD PCP - General Pediatrics 11/07/11 12/12/16 [facility], Pcp PCP - General Internal Medicine 12/13/16 documented as of this encounter
--- OUTSIDE RECORDS SUMMARY | 2025-09-08 15:24 | XMS_ITS | Encounter Summary ---
Author Organization [facility] Address [address] [place] [address] Care Team Providers Care Telegraphic Typewriter Mechanic Name Role Phone Chicho Correa MD Primary Care Provider Kait Lund, Pcp Primary Care Provider Karishma nicholas Encounter Details Date Type Department Care Team Description 05/20/2012 Power Equipment Technology Instructor Report Medical Records [address] [place] [address] Hilda Burt Social History Tobacco Use Types Packs/Day Years [...] on filedocumented in this encounter Care Teams Telegraphic Typewriter Mechanic Relationship Specialty Start Date End Date Chicho Correa MD PCP - General Pediatrics 11/07/11 12/12/16 [facility], Pcp PCP - General Internal Medicine 12/13/16 documented as of this encounter
--- OUTSIDE RECORDS SUMMARY | 2025-09-08 15:24 | XMS_ITS | Encounter Summary ---
Author Organization [facility] Address [address] [place] [address] Care Team Providers Care Manager Reliability Name Role Phone Chicho Correa MD Primary Care Provider Kait Lund, Pcp Primary Care Provider Karishma nicholas Encounter Details Date Type Department Care Team Description 10/23/2012 Cabin Supervisor Report Medical Records [address] [place] [address] Hilda Burt Social History Tobacco Use Types [...] on filedocumented in this encounter Care Teams Manager Reliability Relationship Specialty Start Date End Date Chicho Correa MD PCP - General Pediatrics 11/07/11 12/12/16 [facility], Pcp PCP - General Internal Medicine 12/13/16 documented as of this encounter
--- OUTSIDE RECORDS SUMMARY | 2025-09-08 15:24 | XMS_ITS | Encounter Summary ---
Author Organization [facility] Address [address] [place] [address] Care Team Providers Care Court Reporter Name Role Phone Chicho Correa MD Primary Care Provider Kait Lund, Pcp Primary Care Provider Karishma nicholas Encounter Details Date Type Department Care Team Description 06/30/2012 Pt. Non Urgent Medic al Question Pediatrics - [address] [address] Chicho Correa MD Social History Tobacco Use Types Packs/Day Years Used Date Smoking Tobacco: Never Smokeless Tobacco: Never Alcohol Use Standard Drinks/Week Comments Not Asked 0 (1 standard drink = 0.6 oz pur e alcohol) Sex Assigned at Date Recorded Not on file documented as of this encounter Progress Notes * Mita Booker R.N. - 07/01/2012 4:35 PM EDTFrom: ARNOLDO FLETCHER To: Chicho Correa MD Sent: SatJun 30, 2012 10:34 AM Subject: liver ultrasound Hi Dr. Correa, Can you share any thoughts on Mauras liver ultrasound results with us? The test result was posted [email or web address] but is in medical jargon! Thanks, Dimitrios and Janis Salinas documented in this encounter Plan of Treatment Not on file documented as of this encounter Visit Diagnoses Not on filedocumented in this encounter Care Teams Court Reporter Relationship Specialty Start Date End Date Chicho Correa MD PCP - General Pediatrics 11/07/11 12/12/16 [facility], Pcp PCP - General Internal Medicine 12/13/16 documented as of this encounter
--- OUTSIDE RECORDS SUMMARY | 2025-09-08 15:24 | XMS_ITS | Encounter Summary ---
Author Organization [facility] Address [address] [place] [address] Phone Care Team Providers Care Stock Turner Name Role Phone Robb Barrow MD Primary Care Provider Mackenzie bishop Encounter Details Date Type Department Care Team (Late st Contact Info) Description 05/31/2010 Documentation [facility] [address] [place] [address] Family Medicine, Physician [address] [place], [place] [address] Social History Tobacco Use Types Packs/Day Years [...] on filedocumented in this encounter Care Teams Stock Turner Relationship Specialty Start Date End Date Robb Barrow MD PCP - General 05/31/17 01/30/23 documented as of this encounter
--- OUTSIDE RECORDS SUMMARY | 2025-09-08 15:24 | XMS_ITS | Clinical Summary ---
Author Organization [facility] Address [address] [place] [address] Phone Care Team Providers Care [place] Seamer Name Role Phone Unavailable Primary Care Provider [...] AM EDT Pulse - - Temperature 35.9 C (96.6 F) 08/17/2011 12:00 AM EDT Respiratory Rate - - Oxygen Saturation - [...] 12/21/2019 12/20/2009, 06/03/2003, 04/17/1999, Additional history exists HPV Vaccines (1 - 3-dose SCDM series) 2024 Influenza Vaccines (#1) 2025 12/01/2008 COVID-19 Vaccine (2024- season) 2025 Hepatitis B Vaccines Completed 06/13/1998, 1997, 1997 HIB Vaccines Completed 04/17/1999, 06/22, 03/25/1998, Additional history exists MMR Vaccines Completed 06/10/2001, 01/31/1999 IPV Vaccines Completed 06/03/2003, 03/22, 01/25/1998, Additional history exists Meningococcal Vaccine Aged Out 12/20/2009 No gretel elodia eligible based on patient's age to complete this topic Varicella Vaccines Completed 12/20/2009, 06/16/1999 Hepatitis A Vaccines Aged Out No long er eligible based on patient's age to complete this topic Men B Vaccine Aged Out No longer elig ible based on patient's age to complete this topic Pneumococcal Vaccine Aged Out No long er eligible based on patient's age to complete this topic
== END 2025-09-08 08:28 | disposition home or self-care (01) ==
PROVIDERS: PCP Nurse Practitioner Family; Visit Provider Nurse Practitioner Family
DX: Z00.00 Encounter for general adult medical examination without abnormal findings (principal); E11.9 Type 2 diabetes mellitus without complications; N50.89 Other specified disorders of the male genital organs; Z23 Encounter for immunization

== ENCOUNTER → 2025-09-08 07:52 | Outpatient (BNVA) | payer MEDICAID, SELFPAY | PROVIDERS: PCP Nurse Practitioner Family; Visit Provider Nurse Practitioner Family | DX: Z00.00 Encounter for general adult medical examination without abnormal findings (principal); E11.9 Type 2 diabetes mellitus without complications; N50.89 Other specified disorders of the male genital organs | CPT/HCPCS: 90471; 90656; 96127; 99212; 99395 ==